=== PATIENT | female | born 1965 | race Caucasian/White ===

== ENCOUNTER 2022-03-12 09:20 | Outpatient (CLI) | payer BC, SELFPAY ==
[2022-03-13 09:45] LABS: Follicle Stimulating Hormone 29.8 IU/L
== END 2022-03-12 09:21 | disposition home or self-care (01) ==
PROVIDERS: PCP Family Medicine; Visit Provider Obstetrics & Gynecology
DX: N95.1 Menopausal and female climacteric states (principal)
CPT/HCPCS: 83001

== ENCOUNTER 2022-08-04 13:24 | Emergency (ER) | payer BC, SELFPAY ==
[2022-08-04 13:30] VITALS: BP 159/93; PULSE 85; RESP 17; O2SAT 100; BMI 28.9
[2022-08-04 13:36] VITALS: TEMP 36.7; BMI 28.9
--- NOTE | 2022-08-04 13:45 | CRLHL7_ITS ---
For Patients: As a result of the Century Cures Act, medical imaging exams and procedure reports are released immediately into your electronic medical record. You may view this report before your referring provider. If you have questions, please contact your health care provider. INDICATION: Lower abdominal pain. TECHNIQUE: CT of the abdomen and pelvis without intravenous contrast. Coronal and sagittal reconstructions. COMPARISON: None. FINDINGS: Tiny calcified granuloma in the left hepatic lobe. The unenhanced liver is otherwise unremarkable. Cholecystectomy. Mild dilation of the common bile duct likely related to post cholecystectomy state. The unenhanced spleen, pancreas, and adrenal glands are normal in appearance. No hydronephrosis or ureteral dilation. No obstructing urinary calculi identified. Subcentimeter low-attenuation lesion in the anterior lower pole right kidney is too small to characterize. There is a 3.8 cm cyst in the posterior left kidney which contains a calcified septation. The bladder is normal in appearance. Bulky fibroid uterus. Exophytic left fundal fibroid versus enlarged left ovary (series 2, image 90). Extensive colonic diverticulosis. There is wall thickening of the proximal sigmoid colon with prominent surrounding inflammatory fat stranding. Findings are compatible with acute diverticulitis. Small amount of free fluid in the posterior pelvis. No intraperitoneal free air or evidence of abscess. Negative appendix. No small bowel dilation. No lymphadenopathy by size criteria. Small fat containing umbilical hernia. Mild degenerative changes of the spine. The lung bases are clear. IMPRESSION: 1. Acute uncomplicated diverticulitis of the proximal sigmoid colon. No evidence of perforation or abscess. Small amount of free fluid. 2. Complex septated left renal cyst. Recommend further evaluation with nonemergent renal ultrasound. 3. Bulky fibroid uterus. Exophytic left fundal fibroid versus enlarged left ovary. This could be further evaluated with pelvic ultrasound. Please note that all CT scans at this facility use dose modulation, iterative reconstruction, and/or weight-based dosing when appropriate to reduce radiation dose to as low as reasonably achievable. Dictated by Jaqueline Suarez MD @ 08/04/2022 2:47:48 PM (Electronically Signed)
--- NOTE | 2022-08-04 13:46 | ED_ITS ---
HPI - General Adult General Chief complaint: Abdominal Pain Stated complaint: Abdominal Pain Time Seen by Provider: 08/04/22 13:30 History of Present Illness HPI narrative: Patient is a 56-year-old female has had history of diverticulitis. She reports that she has had abdominal pain for last 3 or 4 days started and she feels a burning feeling in her lower abdomen. She says this is similar to diverticulitis she had the past but it is more diffuse. Radiates a little bit to her back. Patient denies chest pain shortness of breath, rigors she has had nausea. Denies dysuria, hematuria, diarrhea, no blood in her stool. Presents to ED for evaluation. Typically she has not responded well to antibiotics for diverticulitis but has responded to steroids and fasting. Related Data Home Medications Medication Instructions Recorded Confirmed Lactobacillus acidophilus 100 mg 100 mg PO QDAY 02/16/22 03/23/22 (1 billion cell) capsule cholecalciferol (vitamin D3) 25 50 mcg PO DAILY 02/16/22 03/23/22 mcg (1,000 unit) tablet multivitamin 1 tab PO QAM 02/16/22 03/23/22 Previous Rx's Medication Instructions Recorded levonorgestrel-ethinyl estradiol 1 tab PO QDAY #28 tabs 02/16/22 0.1 mg-20 mcg tablet (Falmina (28)) clindamycin HCl 150 mg capsule 150 mg PO TID #15 caps 08/04/22 hydrocodone 7.5 mg-acetaminophen 1 tab PO Q8H PRN pain #14 tabs 08/04/22 325 mg tablet sulfamethoxazole 800 1 tab PO DAILY 10 days #20 tabs 08/04/22 mg-trimethoprim 160 mg tablet Allergies Allergy/AdvReac Type Severity Reaction Status Date / Time penicillin V Allergy Severe Hives Verified 08/04/22 13:40 progesterone Allergy Severe swelling, Verified 08/04/22 13:40 burning of skin, itching, rash ciprofloxacin Allergy Intermediate Hives Verified 08/04/22 13:40 metronidazole Allergy Intermediate Rash Verified 08/04/22 13:40 Nitroimidazoles Allergy Unknown Verified 08/04/22 13:40 DIATRIZOATE MEGLUMINE (IV Allergy Unknown Hives Uncoded 03/23/22 08:51 CONTRAST Review of Systems Status of ROS: Reports: 6 or more systems reviewed and unremarkable except as noted in History and below PFSH PFSH Medical History Abnormal uterine bleeding Angioedema Atrial fibrillation Diverticulitis Lung mass Perimenopause Rectocele Surgical History History of lung biopsy S/P cholecystectomy S/P dilation and curettage Stone in kidney Family History Aunt Diabetes Other Colon cancer Ovarian cancer Social History Narrative: 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 HEENT unremarkable no scleral icterus mouth clear Neck is supple Chest is clear Lung are heart rhythm regular without murmur Abdomen is bowel sounds normoactive, diffuse lower abdominal pain and mild guarding, no obvious rebound. The patient has no upper abdominal tenderness Neurologic nonfocal Skin is warm and dry, no leg swelling Const: Vital Signs, click to edit/add: Vital Signs - 24 hr 08/04/22 13:30 08/04/22 13:36 08/04/22 14:14 Temperature 98.1 F Pulse Rate [Pulse Oximeter] 85 Respiratory Rate 17 Blood Pressure [Ri ght Upper Arm] 159/93 H 144/82 H Pulse Oximetry 100 Oxygen Delivery Me thod Room Air Course Vital Signs Vital signs: Initial Vital Signs Temperature Source Temporal Artery Scan 08/04/22 13:30 Pulse Rate 85 08/04/22 13:30 Pulse Rhythm 08/04/22 13:30 Pulse Strength 3+ Normal 08/04/22 13:30 Respiratory Rate 17 08/04/22 13:30 Blood Pressure 159/93 H 08/04/22 13:30 Blood Pressure Mean 115 08/04/22 13:30 Blood Pressure Position Supine 08/04/22 13:30 Pulse Oximetry 100 08/04/22 13:30 Oxygen Delivery Method 08/04/22 13:30 Vital Signs Pulse Rate 85 08/04/22 13:30 Respiratory Rate 17 08/04/22 13:30 Blood Pressure 159/93 H 08/04/22 13:30 Pulse Oximetry 100 08/04/22 13:30 Oxygen Delivery Method 08/04/22 13:30 Temperature 98.1 F 08/04/22 13:36 Pulse Rate 85 08/04/22 13:30 Respiratory Rate 17 08/04/22 13:30 Blood Pressure 144/82 H 08/04/22 14:14 Pulse Oximetry 100 08/04/22 13:30 Oxygen Delivery Method 08/04/22 13:30 Medical Decision Making MDM Narrative Medical decision making narrative: [age] year white female with a history of diverticulitis with 3 day history of abdominal discomfort lower abdomen, with some mild guarding and tenderness. Some nausea and question fever as well, although none now. The patient will get CT scan her abdomen thought contrast as she is allergic to the contrast, lab studies, IV fluid, IV morphine. Disposition pending findings. Suspicion would be for diverticulitis again versus obstruction, other into intra-abdominal pathology. Addendum: The patient's CT scan of the abdomen shows acute uncomplicated diverticulitis of the proximal sigmoid colon no perforation or abscess small amount of free fluid complex septated left renal cyst needs further evaluation as an outpatient Bulky fibroid uterus questionable left fundal fibroid versus and slightly enlarged left ovary needs pelvic ultrasound as an outpatient. Discussed this with the patient she should get a renal and pelvic ultrasound to follow-up these findings. She can schedule this through her regular physician. Today she has sigmoid diverticulitis. She has multiple allergies to medications, but would like to treat this at home if possible. Will give her Ellis as needed and would start Septra DS 1 p.o. b.i.d. times 10 days. Due to her multiple allergies other medications will be added to this, but I think that might be adequate for her at this point, especially since she has uncomplicated diverticulitis in that is occasionally being treated without antibiotics. The patient has had recurrence of symptoms and has had diverticulitis in the past so I think treating her with antibiotic would be appropriate Lab Data Labs: Lab Results 08/04/22 08/04/22 08/04/22 Range/Units 14:00 14:00 14:00 WBC 19.08 H (4.50-11.00) K/uL RBC 4.52 (4.00-5.20) m/uL Hgb 13.7 (12.0-16.0) gm/dL Hct 41.2 (33.0-51.0) % MCV 91 (80-100) fL MCH 30 (26-34) pg MCHC 33 (32-36) gm/dL RDW Coeff of Afshan 13.2 (11.5-15.5) % Plt Count 297 (140-440) K/uL Neut % (Auto) 84.3 H (42.0-72.0) % Lymph % (Auto) 6.7 L (20-44) % Vigo % (Auto) 7.9 (0.0-11.0) % Eos % (Auto) 0.1 (0.0-7.0) % Baso % (Auto) 0.1 (0.0-3.0) % Neut # (Auto) 16.10 H (1.7-7.0) K/uL Lymph # (Auto) 1.30 (0.90-2.90) K/uL Vigo # (Auto) 1.50 H (0.00-0.90) K/UL Eos # (Auto) 0.00 (0.00-0.50) K/uL Baso # (Auto) 0.00 (0.00-0.30) K/uL Sodium 138 (135-149) mmol/L Potassium 3.8 (3.6-5.1) mmol/L Chloride 106 (96-114) mmol/L Carbon Dioxide 24 (20-32) mmol/L BUN 10 (7-30) mg/dL Creatinine 0.5 (0.5-1.5) mg/dL Estimated Creat Clear 126.74 Estimated GFR 110 ml/min Glucose 79 (60-115) mg/dL Lactate 0.9 (0.5-1.9) mmol/L Calcium 8.8 (8.4-10.6) mg/dL Total Bilirubin 1.1 (0.1-1.5) mg/dL Direct Bilirubin 0.0 (0.0-0.5) mg/dL AST 26 (12-35) U/L ALT 26 (4-35) U/L Alkaline Phosphatase 69 (40-150) U/L C-Reactive Protein 7.7 H (0.5-1.0) mg/dL Total Protein 7.3 (6.0-8.3) g/dL Albumin 4.3 (3.3-5.0) g/dL Amylase 80 (18-89) U/L Urine Color (Yellow) Urine Appearance (Clear) Urine pH (5.0-8.5) Ur Specific Lin[place] (1.000-1.030) Urine Protein (Negative) Urine Glucose (UA) (Negative) Urine Ketones (Negative) Urine Blood (Negative) Urine Nitrite (Negative) Urine Bilirubin (Negative) Urine Urobilinogen (0.2-1.0) Ur Leukocyte Esterase (Negative) Urine RBC (0-2) Urine WBC (0-5) Ur Squamous Epith Cells (None-Few) Urine Bacteria (None) 08/04/22 Range/Units 14:45 WBC (4.50-11.00) K/uL RBC (4.00-5.20) m/uL Hgb (12.0-16.0) gm/dL Hct (33.0-51.0) % MCV (80-100) fL MCH (26-34) pg MCHC (32-36) gm/dL RDW Coeff of Afshan (11.5-15.5) % Plt Count (140-440) K/uL Neut % (Auto) (42.0-72.0) % Lymph % (Auto) (20-44) % Vigo % (Auto) (0.0-11.0) % Eos % (Auto) (0.0-7.0) % Baso % (Auto) (0.0-3.0) % Neut # (Auto) (1.7-7.0) K/uL Lymph # (Auto) (0.90-2.90) K/uL Vigo # (Auto) (0.00-0.90) K/UL Eos # (Auto) (0.00-0.50) K/uL Baso # (Auto) (0.00-0.30) K/uL Sodium (135-149) mmol/L Potassium (3.6-5.1) mmol/L Chloride (96-114) mmol/L Carbon Dioxide (20-32) mmol/L BUN (7-30) mg/dL Creatinine (0.5-1.5) mg/dL Estimated Creat Clear Estimated GFR ml/min Glucose (60-115) mg/dL Lactate (0.5-1.9) mmol/L Calcium (8.4-10.6) mg/dL Total Bilirubin (0.1-1.5) mg/dL Direct Bilirubin (0.0-0.5) mg/dL AST (12-35) U/L ALT (4-35) U/L Alkaline Phosphatase (40-150) U/L C-Reactive Protein (0.5-1.0) mg/dL Total Protein (6.0-8.3) g/dL Albumin (3.3-5.0) g/dL Amylase (18-89) U/L Urine Color Dark yellow (Yellow) Urine Appearance Clear (Clear) Urine pH 6.0 (5.0-8.5) Ur Specific [place] >= 1.030 (1.000-1.030) Urine Protein Trace A (Negative) Urine Glucose (UA) Negative (Negative) Urine Ketones 4+ A (Negative) Urine Blood 2+ A (Negative) Urine Nitrite Negative (Negative) Urine Bilirubin 1+ A (Negative) Urine Urobilinogen 0.2 (0.2-1.0) Ur Leukocyte Esterase Negative (Negative) Urine RBC 0-2 (0-2) Urine WBC 0-2 (0-5) Ur Squamous Epith Cells None (None-Few) Urine Bacteria None (None) Discharge Plan Discharge Clinical Impression: Abdominal pain, Diverticulitis Patient Disposition: Home w/ Parent or Adult Condition: Improved Instructions: Diverticulitis (ED), Abdominal Pain (ED) Additional Instructions: Septra, clindamycin, and Ellis as prescribed, light activity, light diet fluids today, advance diet as tolerated. If worsening pain or other concern return to ED for IV antibiotics and admission. Also you need to talk to your primary doctor about ordering a kidney ultrasound because of a cyst and a pelvic ultrasound because of uterine fibroids and an enlarged left ovary. You can do this as an outpatient with your regular doctor. If he have difficulty scheduling this then let us know in the ER. Activity Level: Light activity Discharge Diet: Regular Diet Detail: Liquid today, starting tomorrow may advance diet as tolerated Prescriptions: New sulfamethoxazole-trimethoprim 800-160 mg tablet 1 tab PO DAILY 10 Days Qty: 20 0RF hydrocodone-acetaminophen 7.5-325 mg tablet 1 tab PO Q8H PRN (Reason: pain) Qty: 14 0RF clindamycin HCl 150 mg capsule 150 mg PO TID Qty: 15 0RF No Action cholecalciferol (vitamin D3) 25 mcg (1,000 unit) tablet 50 mcg PO DAILY multivitamin Tablet 1 tab PO QAM Lactobacillus acidophilus 100 mg (1 billion cell) capsule 100 mg PO QDAY levonorgestrel-ethinyl estrad [Falmina (28)] 0.1-20 mg-mcg tablet 1 tab PO QDAY Qty: 28 11RF Follow Up/Referrals: Sangita Kimbrough DO [Staff Physician] - Stand Alone Forms: [facility] Info Instructions
[2022-08-04] MEDS: MORPHINE 4 MG/ML INJ IVP (14:03)
[2022-08-04] MEDS: 0.9 % SODIUM CHLORIDE 1000 ml 1,000 ML 6000 ML IV (14:03)
[2022-08-04 14:06] LABS: Lactate* 0.9 mmol/L (0.5-1.9)
[2022-08-04 14:14] VITALS: BP 144/82
[2022-08-04 14:17] LABS: Basophils Percent Auto 0.1 % (0.0-3.0); Eosinophils Percent Auto 0.1 % (0.0-7.0); Hematocrit 41.2 % (33.0-51.0); Hemoglobin* 13.7 gm/dL (12.0-16.0); Immature Granulocytes Pct Auto 0.9 %; Lymphocytes Percent Auto 6.7 % (20-44); Mean Corpuscular HGB Conc 33 gm/dL (32-36); Mean Corpuscular Hemoglobin 30 pg (26-34); Mean Corpuscular Volume 91 fL (80-100); Monocytes Percent Auto 7.9 % (0.0-11.0); Neutrophils Percent Auto 84.3 % (42.0-72.0); Platelet Count* 297 K/uL (140-440); RDW Coefficient of Variation % 13.2 % (11.5-15.5); Red Blood Count 4.52 m/uL (4.00-5.20); White Blood Count* 19.08 K/uL (4.50-11.00)
[2022-08-04 14:20] LABS: Slide Review Reflex No
[2022-08-04 14:33] LABS: Albumin* 4.3 g/dL (3.3-5.0); Chloride* 106 mmol/L (96-114); Sodium* 138 mmol/L (135-149)
[2022-08-04 14:34] LABS: Potassium* 3.8 mmol/L (3.6-5.1)
[2022-08-04 14:35] LABS: Amylase* 80 U/L (18-89); Creatinine* 0.5 mg/dL (0.5-1.5); Est. Creatinine Clearance* 126.74; Estimated Glomerular Filt Rate 110 ml/min
[2022-08-04 14:36] LABS: Alanine Aminotransferase* 26 U/L (4-35); Alkaline Phosphatase* 69 U/L (40-150); Aspartate Amino Transferase* 26 U/L (12-35); Bilirubin Total* 1.1 mg/dL (0.1-1.5); Blood Urea Nitrogen* 10 mg/dL (7-30); Carbon Dioxide* 24 mmol/L (20-32); Glucose* 79 mg/dL (60-115); Total Protein* 7.3 g/dL (6.0-8.3)
[2022-08-04 14:37] LABS: Calcium* 8.8 mg/dL (8.4-10.6)
[2022-08-04 14:39] LABS: C Reactive Protein* 7.7 mg/dL (0.5-1.0)
[2022-08-04 15:05] LABS: Appearance Urine Clear (Clear); Bilirubin Urine 1+ (Negative); Blood Urine 2+ (Negative); Color Urine Dark yellow (Yellow); Glucose Urine Negative (Negative); Ketones Urine 4+ (Negative); Leukocyte Esterase Urine Negative (Negative); Nitrite Urine Negative (Negative); Protein Urine Trace (Negative); Specific Gravity Urine >= 1.030 (1.000-1.030); Urobilinogen Urine 0.2 (0.2-1.0)
[2022-08-04] MEDS: HYDROCODONE/ACETAMIN 7.5-325 TABLET 1 TAB PO (15:09)
[2022-08-04 15:26] LABS: RBC Urine 0-2 (0-2); WBC Urine 0-2 (0-5)
--- NOTE | 2022-08-04 15:27 | ED.NURSE ---
[facility] pharmacy called requesting clarification of sulfa rx. Clarified rx with MD Hardy for BID dosing x10 days and updated [facility] pharmacy.
== END 2022-08-04 15:13 | disposition home or self-care (01) ==
PROVIDERS: Emergency Provider Family Medicine; PCP Physician Assistant Medical
DX: K52.9 Noninfective gastroenteritis and colitis, unspecified (principal)
CPT/HCPCS: 36415; 74176; 80048; 80076; 81001; 82150; 83605; 85025; 86140; 87086; 96374; 99284; A9270; J2270; J7030

== ENCOUNTER 2022-08-06 15:31 | Emergency (ER) | payer BC, SELFPAY ==
[2022-08-06] VITALS (23 sets, daily range): BP systolic 100–113; BP diastolic 61–87; PULSE 60–74; RESP 18; TEMP 36.8; O2SAT 93–100; BMI 28.9
--- NOTE | 2022-08-06 15:47 | ED.CHESTPAIN ---
HPI - Chest Pain General Time Seen by Provider: 15:47 Date Seen: 08/06/22 Chief Complaint: Chest Pain Stated Complaint: Chest Pain Fatigue Jaw Pain Time Seen by Provider: 08/06/22 15:47 Source: patient Mode of arrival: ambulatory Limitations: no limitations History of Present Illness HPI narrative: Fiona is a very pleasant 56-year-old female with a history of esophageal diverticulum, vaginal hemorrhage secondary to Eliquis, as well as recent treatment for diverticulitis who comes to the emergency room with chest pain. Patient notes that she had the onset of chest pain last night. She frequently has chest pain in association with a diverticulum in her esophagus that sometimes has food caught in it. She notes however that she has been on a liquid diet only over the past 5 days. Unusual as well was at the pain radiated into her left shoulder and shoulder blade. It was not associated with any shortness of breath but she does describe extreme fatigue. She has not had any coughing or a fever. In regards to her abdominal discomfort her lower abdominal pain is not gone but is markedly improved. She has persisting left upper quadrant abdominal pain and now has increased bloating across the upper abdomen. Patient noted that she initially had the onset of diverticulitis symptoms on TuesdayAugust 02. She has this frequently and will usually just go on a liquid diet and it would resolve. She states that antibiotics have not helped her in the past. However she started having increasing discomfort and was seen in the emergency room on TuesdayAugust 04. At that time she was placed on antibiotics as well as pain medications. She took her last pain medication yesterday morning at 0400 hours. Patient states that her pain was enough last night that she had a hard time sleeping. In regards to her past heart history she has had 2 episodes of atrial fibrillation. She was initially placed on a blood thinner in preparation for cardioversion but her AFib resolved prior to that. She then had a 2nd episode of atrial fibrillation and did have to have a cardioversion which was successful. She is no longer on Eliquis as she had a vaginal hemorrhage. Related Data Home Medications Medication Instructions Recorded Confirmed Lactobacillus acidophilus 100 mg 100 mg PO QDAY 02/16/22 03/23/22 (1 billion cell) capsule cholecalciferol (vitamin D3) 25 50 mcg PO DAILY 02/16/22 03/23/22 mcg (1,000 unit) tablet multivitamin 1 tab PO QAM 02/16/22 03/23/22 Previous Rx's Medication Instructions Recorded levonorgestrel-ethinyl estradiol 1 tab PO QDAY #28 tabs 02/16/22 0.1 mg-20 mcg tablet (Falmina (28)) clindamycin HCl 150 mg capsule 150 mg PO TID #15 caps 08/04/22 hydrocodone 7.5 mg-acetaminophen 1 tab PO Q8H PRN pain #14 tabs 08/04/22 325 mg tablet sulfamethoxazole 800 1 tab PO DAILY 10 days #20 tabs 08/04/22 mg-trimethoprim 160 mg tablet cefdinir 300 mg capsule 300 mg PO BID 7 days #14 caps 08/06/22 clindamycin HCl 150 mg capsule 450 mg PO TID #20 caps 08/06/22 Allergies Allergy/AdvReac Type Severity Reaction Status Date / Time penicillin V Allergy Severe Hives Verified 08/06/22 15:38 progesterone Allergy Severe swelling, Verified 08/06/22 15:38 burning of skin, itching, rash ciprofloxacin Allergy Intermediate Hives Verified 08/06/22 15:38 metronidazole Allergy Intermediate Rash Verified 08/06/22 15:38 Nitroimidazoles Allergy Unknown Verified 08/06/22 15:38 Iodinated Contrast Media Allergy Verified 08/06/22 17:43 Review of Systems Status of ROS Reports: 10 or more systems reviewed and unremarkable except as noted in History and below Narrative Denies tobacco or drug use. Alcohol use is occasional. Const Reports: fatigue; Denies: fever or chills ENMT Denies: throat pain, neck pain or throat swelling Cardio Reports: chest pain; Denies: palpitations, edema, swelling of feet/ankles or shortness of breath with exertion Resp Denies: shortness of breath, cough or wheezing GI Reports: abdominal pain; Denies: nausea, vomiting or diarrhea Denies: painful urination or urinary frequency Musculo Denies: neck pain Integ/Breast Denies: rash Endo Reports: fatigue Allergy/Immuno Denies: throat swelling or wheezing PFSH PFSH Medical History Abnormal uterine bleeding Angioedema Atrial fibrillation Diverticulitis Lung mass Perimenopause Rectocele Surgical History History of lung biopsy S/P cholecystectomy S/P dilation and curettage Stone in kidney Family History Aunt Diabetes Other Colon cancer Ovarian cancer Social History Narrative: Mental health professional: 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 [employer] She has a master's degree She exercises regularly She does not smoke She drinks alcohol 3 to 4 times a week She does not use recreational drugs Smoking Status: Never smoker Do you use any of these nicotine containing products: None Second hand tobacco smoke exposure: No How often do you have a drink containing alcohol: monthly or less How many standard drinks containing alcohol do you have on a typical day: 1 or 2 How often do you have six or more drinks on one occasion: Never AUDIT-C Alcohol total score: 1 Non-prescribed substance use: denies use Little interest or pleasure in doing things: not at all Feeling down, depressed, or hopeless: not at all service: No Exam Narrative Exam Narrative: Patient is alert and oriented. She does appear fatigued and is resting in exam room 8. Her daughter accompanies her and is very supportive and loving. Eyes are clear. Neck is supple. Heart with regular rate and rhythm. Lungs are clear in all lung garcia. Abdomen shows tenderness in the left upper quadrant as well as left lower quadrant. No rebound tenderness. Lower extremities without edema or calf tenderness. Const Vital Signs, click to edit/add: Vital Signs - 24 hr 08/06/22 15:38 08/06/22 17:47 08/06/22 16:15 Temperature 98.3 F Pulse Rate 74 Pulse Rate [Pulse Oximeter] 74 Respiratory Rate 18 Blood Pressure Blood Pressure [Left Upper Arm] 111/87 Pulse Oximetry 99 97 93 Oxygen Delivery Method Room Air 08/06/22 16:30 08/06/22 16:31 08/06/22 17:00 Temperature Pulse Rate 70 68 69 Pulse Rate [Pulse Oximeter] Respiratory Rate Blood Pressure 105/73 Blood Pressure [Left Upper Arm] Pulse Oximetry 97 98 97 Oxygen Delivery Method 08/06/22 17:01 08/06/22 17:30 08/06/22 17:31 Temperature Pulse Rate 69 65 61 Pulse Rate [Pulse Oximeter] Respiratory Rate Blood Pressure 110/71 101/64 Blood Pressure [Left Upper Arm] Pulse Oximetry 100 96 95 Oxygen Delivery Method 08/06/22 17:32 08/06/22 18:00 08/06/22 18:01 Temperature Pulse Rate 60 64 64 Pulse Rate [Pulse Oximeter] Respiratory Rate Blood Pressure 111/65 Blood Pressure [Left Upper Arm] Pulse Oximetry 97 98 99 Oxygen Delivery Method 08/06/22 18:30 08/06/22 18:32 08/06/22 19:00 Temperature Pulse Rate 66 69 65 Pulse Rate [Pulse Oximeter] Respiratory Rate Blood Pressure 113/68 Blood Pressure [Left Upper Arm] Pulse Oximetry 98 98 94 Oxygen Delivery Method 08/06/22 19:01 Temperature Pulse Rate 64 Pulse Rate [Pulse Oximeter] Respiratory Rate Blood Pressure 107/66 Blood Pressure [Left Upper Arm] Pulse Oximetry 95 Oxygen Delivery Method Documenting provider has reviewed patient's vital signs: yes Course Course Hospital Course: Differential diagnosis includes but is not limited to acute coronary event, esophagitis, referred diaphragmatic pressure, perforation of diverticulitis, other infectious source. We will place an IV and draw labs to include CBC, comprehensive panel, CRP, troponin, amylase, lipase. Will also obtain urinalysis and chest x-ray. Patient voices understanding of her plan going forward. Will also add COVID swab. Reevaluation(s) Reevaluation #1: Patient receptive to using some pain medication and 4 mg of Zofran and morphine given. Patient notes improvement. Reevaluation #2: Patient doing well. Discussed with patient fluid in the esophagus but otherwise no other worrisome signs. Persisting abnormality of both kidney and questionable ovary. Vital Signs Vital signs: Initial Vital Signs Temperature 98.3 F 08/06/22 15:38 Temperature Source Temporal Artery Scan 08/06/22 15:38 Pulse Rate 74 08/06/22 15:38 Pulse Rhythm 08/06/22 15:38 Respiratory Rate 18 08/06/22 15:38 Blood Pressure 111/87 08/06/22 15:38 Blood Pressure Mean 95 08/06/22 15:38 Blood Pressure Position Supine 08/06/22 15:38 Pulse Oximetry 99 08/06/22 15:38 Oxygen Delivery Method 08/06/22 15:38 Vital Signs Temperature 98.3 F 08/06/22 15:38 Pulse Rate 74 08/06/22 15:38 Respiratory Rate 18 08/06/22 15:38 Blood Pressure 111/87 08/06/22 15:38 Pulse Oximetry 99 08/06/22 15:38 Oxygen Delivery Method 08/06/22 15:38 Temperature 98.3 F 08/06/22 15:38 Pulse Rate 64 08/06/22 19:01 Respiratory Rate 18 08/06/22 15:38 Blood Pressure 107/66 08/06/22 19:01 Pulse Oximetry 95 08/06/22 19:01 Oxygen Delivery Method 08/06/22 15:38 MDM - Chest Pain MDM Narrative Medical decision making narrative: 1. Chest pain-patient has negative troponin x2 as well as reassuring EKGs. I believe that her discomfort is actually referred pain from the esophagus which may be irritated as there is fluid in the esophagus. I am wondering if the use of Bactrim has also cause some irritation. Will treat with omeprazole 40 mg p.o. at this time. No evidence of hypoxia or underlying pneumonia or acute coronary syndrome. 2. Diverticulitis-persistent but no evidence of abscess or perforation. Patient has seen improvement in her white count from 19.08 to normal today at 4.59. Her CRP is still elevated at 7.9 with previous value of 7.7. I do wonder if we need to broaden antibiotic coverage. She is feeling bloated today which is consistent with effects of pain and infection. I spoke with patient about continuing Bactrim versus switching to broader spectrum. I do wonder of Bactrim is part of her discomfort today. She has elected to switch and we will be using clindamycin 450 mg t.i.d. 1st dose given tonight and Omnicef 300 mg p.o. b.i.d.. Unfortunately we do not have Omnicef in house and therefore will give 1 g of Rocephin. She feels comfortable with this plan. Initially she stated that sometimes antibiotics do not work but clearly we have seen improvement in her white count. 3. Disposition-home with her daughter. Return to the emergency room for worsening symptoms. Will print out copy of her CT as she will need outpatient follow-up for unusual appearance of the left ovary and a left renal cyst. This can be done as an outpatient with her primary MD. Medical Records Data Attestation: I reviewed the patient's medical records. Lab Data Attestation: I reviewed the patient's lab results. Labs: Lab Results 08/06/22 08/06/22 08/06/22 Range/Units 16:05 16:32 16:32 WBC 4.59 (4.50-11.00) K/uL RBC 4.42 (4.00-5.20) m/uL Hgb 13.1 (12.0-16.0) gm/dL Hct 40.9 (33.0-51.0) % MCV 93 (80-100) fL MCH 30 (26-34) pg MCHC 32 (32-36) gm/dL RDW Coeff of Afshan 12.9 (11.5-15.5) % Plt Count 285 (140-440) K/uL Neut % (Auto) 67.5 (42.0-72.0) % Lymph % (Auto) 12.4 L (20-44) % [place]osa % (Auto) 15.7 H (0.0-11.0) % Eos % (Auto) 2.8 (0.0-7.0) % Baso % (Auto) 0.7 (0.0-3.0) % Neut # (Auto) 3.10 (1.7-7.0) K/uL Lymph # (Auto) 0.60 L (0.90-2.90) K/uL [place] # (Auto) 0.70 (0.00-0.90) K/UL Eos # (Auto) 0.13 (0.00-0.50) K/uL Baso # (Auto) 0.03 (0.00-0.30) K/uL Sodium 136 (135-149) mmol/L Potassium 4.2 (3.6-5.1) mmol/L Chloride 103 (96-114) mmol/L Carbon Dioxide 26 (20-32) mmol/L BUN 6 L (7-30) mg/dL Creatinine 0.7 (0.5-1.5) mg/dL Estimated Creat Clear 90.53 Estimated GFR 101 ml/min Glucose 96 (60-115) mg/dL Calcium 8.9 (8.4-10.6) mg/dL Total Bilirubin 0.6 (0.1-1.5) mg/dL AST 27 (12-35) U/L ALT 24 (4-35) U/L Alkaline Phosphatase 67 (40-150) U/L C-Reactive Protein 7.9 H (0.5-1.0) mg/dL Total Protein 7.6 (6.0-8.3) g/dL Albumin 4.2 (3.3-5.0) g/dL Amylase (18-89) U/L Lipase (23-300) U/L Urine Color Yellow (Yellow) Urine Appearance Clear (Clear) Urine pH 6.5 (5.0-8.5) Ur Specific Clare 1.010 (1.000-1.030) Urine Protein Negative (Negative) Urine Glucose (UA) Negative (Negative) Urine Ketones Trace A (Negative) Urine Blood 1+ A (Negative) Urine Nitrite Negative (Negative) Urine Bilirubin Negative (Negative) Urine Urobilinogen 1.0 (0.2-1.0) Ur Leukocyte Esterase Negative (Negative) Urine RBC 0-2 (0-2) Urine WBC 0-2 (0-5) Ur Squamous Epith Cells Few (None-Few) Urine Bacteria None (None) SARS-CoV-2 (PCR) (Negative) Influenza Type A (PCR) (Negative) Influenza Type B (PCR) (Negative) RSV (PCR) (Negative) POC Troponin I (0.01-0.04) ng/ml 08/06/22 08/06/22 08/06/22 Range/Units 16:32 16:32 16:48 WBC (4.50-11.00) K/uL RBC (4.00-5.20) m/uL Hgb (12.0-16.0) gm/dL Hct (33.0-51.0) % MCV (80-100) fL MCH (26-34) pg MCHC (32-36) gm/dL RDW Coeff of Afshan (11.5-15.5) % Plt Count (140-440) K/uL Neut % (Auto) (42.0-72.0) % Lymph % (Auto) (20-44) % [place] % (Auto) (0.0-11.0) % Eos % (Auto) (0.0-7.0) % Baso % (Auto) (0.0-3.0) % Neut # (Auto) (1.7-7.0) K/uL Lymph # (Auto) (0.90-2.90) K/uL [place] # (Auto) (0.00-0.90) K/UL Eos # (Auto) (0.00-0.50) K/uL Baso # (Auto) (0.00-0.30) K/uL Sodium (135-149) mmol/L Potassium (3.6-5.1) mmol/L Chloride (96-114) mmol/L Carbon Dioxide (20-32) mmol/L BUN (7-30) mg/dL Creatinine (0.5-1.5) mg/dL Estimated Creat Clear Estimated GFR ml/min Glucose (60-115) mg/dL Calcium (8.4-10.6) mg/dL Total Bilirubin (0.1-1.5) mg/dL AST (12-35) U/L ALT (4-35) U/L Alkaline Phosphatase (40-150) U/L C-Reactive Protein (0.5-1.0) mg/dL Total Protein (6.0-8.3) g/dL Albumin (3.3-5.0) g/dL Amylase 89 (18-89) U/L Lipase 55 (23-300) U/L Urine Color (Yellow) Urine Appearance (Clear) Urine pH (5.0-8.5) Ur Specific Clare (1.000-1.030) Urine Protein (Negative) Urine Glucose (UA) (Negative) Urine Ketones (Negative) Urine Blood (Negative) Urine Nitrite (Negative) Urine Bilirubin (Negative) Urine Urobilinogen (0.2-1.0) Ur Leukocyte Esterase (Negative) Urine RBC (0-2) Urine WBC (0-5) Ur Squamous Epith Cells (None-Few) Urine Bacteria (None) SARS-CoV-2 (PCR) Negative SARS-CoV-2 (Negative) Influenza Type A (PCR) Negative PCR FLU A (Negative) Influenza Type B (PCR) Negative PCR FLU B (Negative) RSV (PCR) Negative PCR RSV (Negative) POC Troponin I 0.00 L (0.01-0.04) ng/ml 08/06/22 Range/Units 18:34 WBC (4.50-11.00) K/uL RBC (4.00-5.20) m/uL Hgb (12.0-16.0) gm/dL Hct (33.0-51.0) % MCV (80-100) fL MCH (26-34) pg MCHC (32-36) gm/dL RDW Coeff of Afshan (11.5-15.5) % Plt Count (140-440) K/uL Neut % (Auto) (42.0-72.0) % Lymph % (Auto) (20-44) % [place] % (Auto) (0.0-11.0) % Eos % (Auto) (0.0-7.0) % Baso % (Auto) (0.0-3.0) % Neut # (Auto) (1.7-7.0) K/uL Lymph # (Auto) (0.90-2.90) K/uL [place] # (Auto) (0.00-0.90) K/UL Eos # (Auto) (0.00-0.50) K/uL Baso # (Auto) (0.00-0.30) K/uL Sodium (135-149) mmol/L Potassium (3.6-5.1) mmol/L Chloride (96-114) mmol/L Carbon Dioxide (20-32) mmol/L BUN (7-30) mg/dL Creatinine (0.5-1.5) mg/dL Estimated Creat Clear Estimated GFR ml/min Glucose (60-115) mg/dL Calcium (8.4-10.6) mg/dL Total Bilirubin (0.1-1.5) mg/dL AST (12-35) U/L ALT (4-35) U/L Alkaline Phosphatase (40-150) U/L C-Reactive Protein (0.5-1.0) mg/dL Total Protein (6.0-8.3) g/dL Albumin (3.3-5.0) g/dL Amylase (18-89) U/L Lipase (23-300) U/L Urine Color (Yellow) Urine Appearance (Clear) Urine pH (5.0-8.5) Ur Specific Clare (1.000-1.030) Urine Protein (Negative) Urine Glucose (UA) (Negative) Urine Ketones (Negative) Urine Blood (Negative) Urine Nitrite (Negative) Urine Bilirubin (Negative) Urine Urobilinogen (0.2-1.0) Ur Leukocyte Esterase (Negative) Urine RBC (0-2) Urine WBC (0-5) Ur Squamous Epith Cells (None-Few) Urine Bacteria (None) SARS-CoV-2 (PCR) (Negative) Influenza Type A (PCR) (Negative) Influenza Type B (PCR) (Negative) RSV (PCR) (Negative) POC Troponin I 0.00 L (0.01-0.04) ng/ml Imaging Data Chest x-ray: Attestation: I have reviewed the pertinent imaging results. My impression: No acute findings Radiologist's impression: Cardiovascular and mediastinum:? Heart size and vasculature are normal in caliber and appearance.? Lungs and pleural spaces:? Lungs are clear.? No sign of infiltrate or mass. ?No sign of pleural effusion.? No pneumothorax.? Bones and soft tissues:? No significant findings. IMPRESSION: No acute findings and no significant changes from the prior exam. CT Chest/Ab/Pelvis: Attestation: I have reviewed the pertinent imaging results. Radiologist's impression: Cardiovascular structures: Thoracic aorta is normal in caliber with mild atherosclerotic calcification. No pericardial effusion. Mediastinum and nirav: Hypodense right lobe thyroid lesion with calcification, similar to the prior exam. Calcified mediastinal and left hilar lymph nodes. Fluid seen within the esophagus. Lungs and pleura: No pleural effusion or pneumothorax. Calcified granuloma left upper lobe. No acute pulmonary consolidation. Chest wall and axilla: No mass or adenopathy.? Bones: No suspicious bone lesions.? Unremarkable for age.? ABDOMEN AND PELVIS: Liver: Calcification within the liver consistent with old granulomatous disease. Gallbladder and bile ducts: Status post cholecystectomy. Pancreas: Unremarkable.? Spleen: Unremarkable.? Adrenal glands: Unremarkable.? Kidneys: Nonobstructing nephrolithiasis. Exophytic cyst posterior left kidney measuring 2.6 centimeters with rim calcification similar to the prior exam. GI tract: Stomach is unremarkable. No dilated loops of large or small intestine with extensive colonic diverticulosis. Prominent inflammation adjacent to a proximal sigmoid diverticulum with some adjacent colonic wall thickening. No definite abscess or pneumoperitoneum. Vascular structures: Unremarkable.? Miscellaneous: Fat containing umbilical hernia. Pelvic Organs: Lobulated uterus, suspect underlying leiomyomata. External iliac lymph nodes measure up to 9 millimeters in short axis. Bones: Degenerative disc disease lumbar spine. IMPRESSION: 1. Acute sigmoid diverticulitis with prominent adjacent inflammation without evidence of abscess or pneumoperitoneum. Appearance is fairly similar to the study of 2 days prior. 2. Complex left renal cyst measuring 2.6 centimeters. Follow-up outpatient ultrasound suggested. 3. Prominent lobulated uterus, likely multiple leiomyomata although correlation with pelvic ultrasound is suggested. 4. Fluid seen within the esophagus. Differential diagnosis includes esophageal dysmotility and gastroesophageal reflux. 5. Old granulomatous disease. ECG Data Attestation: I personally reviewed and interpreted this ECG as follows: ECG interpretation date: 08/06/22 Interpretation: EKG 1. By my read shows sinus rhythm at a rate of 84. ME interval [id number] heart block. Do not note any acute ST or T-wave changes. EKG 2. By my read shows sinus rhythm at a rate of 69. No acute ST or T-wave changes are noted. Normal QT. Discharge Plan Discharge Clinical Impression: Diverticulitis, Atypical chest pain, Acid reflux Patient Disposition: Home, Self-Care Condition: Improved Instructions: Diverticulitis (ED) Additional Instructions: Discontinue Bactrim. You antibiotics will be clindamycin 450 mg 3 times daily. Omnicef 300 mg twice daily. Push fluids as much as possible. Would also recommend the use of omeprazole 20 mg every night for as long as you are on antibiotics. Return to the emergency room for worsening symptoms. A copy of your CT is provided to you. You will need to follow up as an outpatient for incidental findings which looks like were discussed from a previous visit. I just wanted to remind you again. Prescriptions: New clindamycin HCl 150 mg capsule 450 mg PO TID Qty: 20 0RF cefdinir 300 mg capsule 300 mg PO BID 7 Days Qty: 14 0RF No Action cholecalciferol (vitamin D3) 25 mcg (1,000 unit) tablet 50 mcg PO DAILY multivitamin Tablet 1 tab PO QAM Lactobacillus acidophilus 100 mg (1 billion cell) capsule 100 mg PO QDAY levonorgestrel-ethinyl estrad [Falmina (28)] 0.1-20 mg-mcg tablet 1 tab PO QDAY Qty: 28 11RF sulfamethoxazole-trimethoprim 800-160 mg tablet 1 tab PO DAILY 10 Days Qty: 20 0RF hydrocodone-acetaminophen 7.5-325 mg tablet 1 tab PO Q8H PRN (Reason: pain) Qty: 14 0RF clindamycin HCl 150 mg capsule 150 mg PO TID Qty: 15 0RF Follow Up/Referrals: Areli Villagomez PA-C [Primary Care Provider] - Stand Alone Forms: [employer] Info Instructions
--- NOTE | 2022-08-06 16:05 | CRLHL7_ITS ---
For Patients: As a result of the Cures Act, medical imaging exams and procedure reports are released immediately into your electronic medical record. You may view this report before your referring provider. If you have questions, please contact your health care provider. INDICATION: Chest pain. TECHNIQUE: Chest 1 views. COMPARISON: July 26, 2020. FINDINGS: Cardiovascular and mediastinum: Heart size and vasculature are normal in caliber and appearance. Lungs and pleural spaces: Lungs are clear. No sign of infiltrate or mass. No sign of pleural effusion. No pneumothorax. Bones and soft tissues: No significant findings. IMPRESSION: No acute findings and no significant changes from the prior exam. Dictated by Tyson Schroeder MD @ 08/06/2022 5:00:32 PM (Electronically Signed)
[2022-08-06] MEDS: 0.9 % SODIUM CHLORIDE 1000 ml 1,000 ML IV (16:39)
[2022-08-06 16:59] LABS: Basophils Absolute Auto 0.03 K/uL (0.00-0.30); Basophils Percent Auto 0.7 % (0.0-3.0); Eosinophils Absolute Auto 0.13 K/uL (0.00-0.50); Eosinophils Percent Auto 2.8 % (0.0-7.0); Hematocrit 40.9 % (33.0-51.0); Hemoglobin* 13.1 gm/dL (12.0-16.0); Immature Granulocytes Abs Auto 0.04 K/uL (0.00-0.30); Immature Granulocytes Pct Auto 0.9 %; Lymphocytes Percent Auto 12.4 % (20-44); Mean Corpuscular HGB Conc 32 gm/dL (32-36); Mean Corpuscular Hemoglobin 30 pg (26-34); Mean Corpuscular Volume 93 fL (80-100); Monocytes Percent Auto 15.7 % (0.0-11.0); Neutrophils Percent Auto 67.5 % (42.0-72.0); Platelet Count* 285 K/uL (140-440); RDW Coefficient of Variation % 12.9 % (11.5-15.5); Red Blood Count 4.42 m/uL (4.00-5.20); White Blood Count* 4.59 K/uL (4.50-11.00)
[2022-08-06 17:03] LABS: Slide Review Reflex No
[2022-08-06] MEDS: ONDANSETRON 2 MG/ML inj 4 MG IVP (17:07)
[2022-08-06 17:09] LABS: Amylase* 89 U/L (18-89); Lipase* 55 U/L (23-300)
--- NOTE | 2022-08-06 17:10 | CRLHL7_ITS ---
For Patients: As a result of the Century Cures Act, medical imaging exams and procedure reports are released immediately into your electronic medical record. You may view this report before your referring provider. If you have questions, please contact your health care provider. INDICATION: Chest and upper abdominal pain TECHNIQUE: CT chest, abdomen and pelvis acquired with no intravenous contrast. COMPARISON: Chest CT 03/05/2015 and abdomen and pelvis CT 08/04/2022 FINDINGS: CHEST: Cardiovascular structures: Thoracic aorta is normal in caliber with mild atherosclerotic calcification. No pericardial effusion. Mediastinum and nirav: Hypodense right lobe thyroid lesion with calcification, similar to the prior exam. Calcified mediastinal and left hilar lymph nodes. Fluid seen within the esophagus. Lungs and pleura: No pleural effusion or pneumothorax. Calcified granuloma left upper lobe. No acute pulmonary consolidation. Chest wall and axilla: No mass or adenopathy. Bones: No suspicious bone lesions. Unremarkable for age. ABDOMEN AND PELVIS: Liver: Calcification within the liver consistent with old granulomatous disease. Gallbladder and bile ducts: Status post cholecystectomy. Pancreas: Unremarkable. Spleen: Unremarkable. Adrenal glands: Unremarkable. Kidneys: Nonobstructing nephrolithiasis. Exophytic cyst posterior left kidney measuring 2.6 centimeters with rim calcification similar to the prior exam. GI tract: Stomach is unremarkable. No dilated loops of large or small intestine with extensive colonic diverticulosis. Prominent inflammation adjacent to a proximal sigmoid diverticulum with some adjacent colonic wall thickening. No definite abscess or pneumoperitoneum. Vascular structures: Unremarkable. Miscellaneous: Fat containing umbilical hernia. Pelvic Organs: Lobulated uterus, suspect underlying leiomyomata. External iliac lymph nodes measure up to 9 millimeters in short axis. Bones: Degenerative disc disease lumbar spine. IMPRESSION: 1. Acute sigmoid diverticulitis with prominent adjacent inflammation without evidence of abscess or pneumoperitoneum. Appearance is fairly similar to the study of 2 days prior. 2. Complex left renal cyst measuring 2.6 centimeters. Follow-up outpatient ultrasound suggested. 3. Prominent lobulated uterus, likely multiple leiomyomata although correlation with pelvic ultrasound is suggested. 4. Fluid seen within the esophagus. Differential diagnosis includes esophageal dysmotility and gastroesophageal reflux. 5. Old granulomatous disease. Please note that all CT scans at this facility use dose modulation, iterative reconstruction, and/or weight-based dosing when appropriate to reduce radiation dose to as low as reasonably achievable. Dictated by Fausto Green MD @ 08/06/2022 6:17:46 PM (Electronically Signed)
[2022-08-06] MEDS: MORPHINE 4 MG/ML INJ IVP (17:19)
[2022-08-06 17:46] LABS: Albumin* 4.2 g/dL (3.3-5.0); Chloride* 103 mmol/L (96-114); Potassium* 4.2 mmol/L (3.6-5.1); Sodium* 136 mmol/L (135-149)
[2022-08-06 17:48] LABS: Creatinine* 0.7 mg/dL (0.5-1.5); Est. Creatinine Clearance* 90.53; Estimated Glomerular Filt Rate 101 ml/min
[2022-08-06 17:49] LABS: Alanine Aminotransferase* 24 U/L (4-35); Alkaline Phosphatase* 67 U/L (40-150); Aspartate Amino Transferase* 27 U/L (12-35); Bilirubin Total* 0.6 mg/dL (0.1-1.5); Blood Urea Nitrogen* 6 mg/dL (7-30); Carbon Dioxide* 26 mmol/L (20-32); Glucose* 96 mg/dL (60-115); Total Protein* 7.6 g/dL (6.0-8.3)
[2022-08-06 17:50] LABS: Calcium* 8.9 mg/dL (8.4-10.6)
[2022-08-06 17:52] LABS: C Reactive Protein* 7.9 mg/dL (0.5-1.0)
[2022-08-06 17:59] LABS: Appearance Urine Clear (Clear); Bilirubin Urine Negative (Negative); Blood Urine 1+ (Negative); Color Urine Yellow (Yellow); Glucose Urine Negative (Negative); Ketones Urine Trace (Negative); Leukocyte Esterase Urine Negative (Negative); Nitrite Urine Negative (Negative); Protein Urine Negative (Negative); pH Urine 6.5 (5.0-8.5)
[2022-08-06 18:28] LABS: PCR FLU A Negative PCR FLU A (Negative); PCR FLU B Negative PCR FLU B (Negative); PCR RSV Negative PCR RSV (Negative)
[2022-08-06 18:30] LABS: SARS PCR* Negative SARS-CoV-2 (Negative)
[2022-08-06 18:31] LABS: RBC Urine 0-2 (0-2); Squamous Epithelial Cell Urine Few (None-Few); WBC Urine 0-2 (0-5)
[2022-08-06] MEDS: cefTRIAXone 1 GM in 0.9 % SODIUM CHLORIDE Mini-bag 100 ML IVPB (19:56)
[2022-08-06] MEDS: CLINDAMYCIN 150 MG CAPSULE 450 MG PO (19:57)
[2022-08-06] MEDS: OMEPRAZOLE 20 MG CAPSULE DR 40 MG PO (19:57)
== END 2022-08-06 20:48 | disposition home or self-care (01) ==
PROVIDERS: Emergency Provider Family Medicine; PCP Physician Assistant Medical
DX: K57.32 Diverticulitis of large intestine without perforation or abscess without bleeding (principal)
CPT/HCPCS: 36415; 71045; 71250; 74176; 80053; 81001; 82150; 83690; 84484; 85025; 86140; 87502; 87634; 87635; 93005; 94761; 96365; 96375; 99284; 99285; A9270; J0696; J2270; J2405; J7030

== ENCOUNTER 2022-11-22 17:48 | Emergency (ER) | payer BC, SELFPAY ==
[2022-11-22 18:00] VITALS: BP 130/82; PULSE 93; RESP 18; TEMP 36.9; O2SAT 98; BMI 28.9
--- NOTE | 2022-11-22 18:42 | CRLHL7_ITS ---
For Patients: As a result of the Century Cures Act, medical imaging exams and procedure reports are released immediately into your electronic medical record. You may view this report before your referring provider. If you have questions, please contact your health care provider. INDICATION: Recurrent diverticulitis TECHNIQUE: CT abdomen and pelvis without contrast. COMPARISON: August 06, 2022 CT pelvis FINDINGS: Lower chest: Stable hiatal hernia, otherwise, unremarkable. Liver: Unremarkable. Spleen: Unremarkable. Pancreas: Unremarkable. Gallbladder and bile ducts: Cholecystectomy. There is no biliary enlargement. Kidneys: Stable presumed cyst posterior midpole left kidney. Stable nonobstructive punctate calculus mid right kidney. No hydronephrosis. Adrenal glands: Unremarkable. GI tract: New, extensive inflammatory change about the mid transverse colon, in an area of diverticulosis, compatible with acute, uncomplicated diverticulitis. Some of this inflammatory change extends into the umbilicus. Prior diverticulitis about the distal descending and sigmoid colon has resolved. Appendix is normal. Vascular structures: Unremarkable. Lymph nodes: Unremarkable. Miscellaneous: Stable fat containing hernia at the lower right anterior abdominal wall, images 172-173 of series 2. No free air. Pelvic Organs: Mildly enlarged uterus. Small amount of free fluid posterior to the uterus, nonspecific. Otherwise, unremarkable Bones: Unremarkable for age. IMPRESSION: 1. New uncomplicated acute diverticulitis of the transverse colon. 2. Stable additional chronic and postoperative change, as above, including anterior abdominal wall defect right lower abdomen. Please note that all CT scans at this facility use dose modulation, iterative reconstruction, and/or weight-based dosing when appropriate to reduce radiation dose to as low as reasonably achievable. Dictated by Hayes Baker MD @ 11/22/2022 8:53:53 PM (Electronically Signed)
--- NOTE | 2022-11-22 18:43 | ED_ITS ---
HPI - Abdominal Pain General Chief Complaint: Abdominal Pain Stated Complaint: Abdominal pain Time Seen by Provider: 11/22/22 17:58 History of Present Illness HPI narrative: This 57-year-old female comes in with abdominal pain that began yesterday morning. She has a history of recurrent diverticulitis and states that these symptoms feel similar. Pain is constant and is located diffusely in her abdomen but more intensely in the left lower quadrant. She states that she measured a fever prior to arrival here. Her temperature here records normal finding. She states that the pain is worse with any kind of movement. Related Data Home Medications Medication Instructions Recorded Confirmed cholecalciferol (vitamin D3) 25 50 mcg PO DAILY 02/16/22 10/20/22 mcg (1,000 unit) tablet multivitamin 1 tab PO QAM 02/16/22 10/20/22 prednisone 10 mg tablet 10 mg PO BID 10/20/22 10/20/22 prednisone 20 mg tablet 20 mg PO BID 10/20/22 10/20/22 Allergies Allergy/AdvReac Type Severity Reaction Status Date / Time penicillin V Allergy Severe Hives Verified 10/20/22 11:34 progesterone Allergy Severe swelling, Verified 10/20/22 11:34 burning of skin, itching, rash ciprofloxacin Allergy Intermediate Hives Verified 10/20/22 11:34 metronidazole Allergy Intermediate Rash Verified 10/20/22 11:34 Nitroimidazoles Allergy Unknown Verified 10/20/22 11:34 Iodinated Contrast Media Allergy Verified 10/20/22 11:34 Review of Systems Status of ROS Reports: 10 or more systems reviewed and unremarkable except as noted in History and below Narrative Constitutional: No fevers, no weight gain or loss. Eyes: No discharge. No vision changes. HENT: No congestion, no sore throat, no ear pain. Cardiovascular: No chest pain, no palpitations. Respiratory: No shortness of breath, no wheezes, no cough. Gastrointestinal: No vomiting, no diarrhea. Abdominal pain as described above. Genitourinary: No dysuria, no hematuria. Musculoskeletal: Normal range of motion. Skin: No rashes, no pruritis. Neurological: No dizziness, weakness, sensory change, speech change. Endo/Heme/Allergies: No bruising or bleeding. No polydipsia. Pysch: no suicidality, no anxiety, no insomnia. All other systems reviewed and are negative. 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[employer] She has a master's degree She exercises regularly She does not smoke She drinks alcohol 3 to 4 times a week She does not use recreational drugs Smoking Status: Never smoker Do you use any of these nicotine containing products: None Second hand tobacco smoke exposure: No How often do you have a drink containing alcohol: 2-3 times a week How many standard drinks containing alcohol do you have on a typical day: 1 or 2 How often do you have six or more drinks on one occasion: Never AUDIT-C Alcohol total score: 3 Non-prescribed substance use: denies use Little interest or pleasure in doing things: not at all Feeling down, depressed, or hopeless: not at all service: No Exam Narrative: Exam Narrative: Constitutional: Well-developed, well-nourished, no acute distress. HEENT: Normocephalic, atraumatic. Neck: Normal range of motion. Nontender. Supple. Heart: Regular. No murmurs. Normal rate. Intact distal pulses. Lungs: Clear to auscultation. No chest discomfort. No wheezes, rhonchi, or rales. Abdomen: Decreased bowel sounds. Diffuse pain throughout the abdomen but increased in the left lower quadrant. Rebound tenderness is present. Genitalia: Deferred. Back: No midline tenderness. Normal range of motion. Extremities: Normal range of motion. No injury. Skin: Intact. No rash. Warm. No erythema or pallor. Neurologic: No altered sensation. No weakness. Alert and oriented. Psychiatric: No suicidality. No anxiety or depression. No insomnia. Nursing notes and vitals signs are reviewed. Const: Vital Signs, click to edit/add: Vital Signs - 24 hr 11/22/22 18:00 11/22/22 19:12 11/22/22 20:35 Temperature 98.4 F 98.4 F Pulse Rate [Right Pulse Oximeter] 93 72 Respiratory Rate 18 16 Blood Pressure [Ri ght Upper Arm] 130/82 112/60 Pulse Oximetry 98 95 98 Oxygen Delivery Me thod Room Air Room Air Course Vital Signs Vital signs: Initial Vital Signs Temperature 98.4 F 11/22/22 18:00 Temperature Source Temporal Artery Scan 11/22/22 18:00 Pulse Rate 93 11/22/22 18:00 Respiratory Rate 18 11/22/22 18:00 Blood Pressure 130/82 11/22/22 18:00 Blood Pressure Mean 98 11/22/22 18:00 Pulse Oximetry 98 11/22/22 18:00 Oxygen Delivery Method Room Air 11/22/22 18:00 Vital Signs Temperature 98.4 F 11/22/22 18:00 Pulse Rate 93 11/22/22 18:00 Respiratory Rate 18 11/22/22 18:00 Blood Pressure 130/82 11/22/22 18:00 Pulse Oximetry 98 11/22/22 18:00 Oxygen Delivery Method Room Air 11/22/22 18:00 Temperature 98.4 F 11/22/22 20:35 Pulse Rate 72 11/22/22 20:35 Respiratory Rate 16 11/22/22 20:35 Blood Pressure 112/60 11/22/22 20:35 Pulse Oximetry 98 11/22/22 20:35 Oxygen Delivery Method Room Air 11/22/22 20:35 MDM - Abdominal Pain MDM Narrative Medical decision making narrative: This patient comes in with abdominal pain that is similar to prior episodes of diverticulitis. She does arrive with normal vital signs but is rather tender in her abdomen with some rebound tenderness. CT imaging is acquired and shows evidence of acute diverticulitis without complication. She does have an umbilical hernia that is not new and there is no sign of incarceration. The patient did receive an intramuscular injection of morphine 10 mg. She received prescription for Augmentin and some tablets of [place]. I advised her regarding symptoms that would indicate a need for return and re-evaluation. Imaging Data CT scan - abdomen: Radiologist's impression: 1. New uncomplicated acute diverticulitis of the transverse colon. 2. Stable additional chronic and postoperative change, as above, including anterior abdominal wall defect right lower abdomen. Discharge Plan Discharge Clinical Impression: Diverticulitis Patient Disposition: Home, Self-Care Condition: Unchanged Additional Instructions: Take medication as needed and indicated. Follow up with MD return if worsening. Prescriptions: No Action cholecalciferol (vitamin D3) 25 mcg (1,000 unit) tablet 50 mcg PO DAILY multivitamin Tablet 1 tab PO QAM prednisone 10 mg tablet 10 mg PO BID prednisone 20 mg tablet 20 mg PO BID Follow Up/Referrals: Areli Villagomez PALolita [Primary Care Provider] - Stand Alone Forms: Mobile Location, IP Info Instructions
[2022-11-22] MEDS: MORPHINE 10 MG/ML inj IM (19:02)
--- NOTE | 2022-11-22 19:11 | ED.NURSE ---
Pt placed on continuous pulse oximetry to monitor oxygen sats after IM morphine administration.
[2022-11-22 19:12] VITALS: O2SAT 95
[2022-11-22 20:35] VITALS: BP 112/60; PULSE 72; RESP 16; TEMP 36.9; O2SAT 98
[2022-11-22 21:13] VITALS: BP 125/71; PULSE 79; RESP 16; O2SAT 97
== END 2022-11-22 21:15 | disposition home or self-care (01) ==
PROVIDERS: Emergency Provider Emergency Medicine Emergency Medical Services; PCP Physician Assistant Medical
DX: K57.32 Diverticulitis of large intestine without perforation or abscess without bleeding (principal)
CPT/HCPCS: 74176; 94761; 96372; 99284; J2270

== ENCOUNTER 2023-05-13 10:00 | Outpatient (RCR) | payer BC, SELFPAY | END 2023-09-10 23:59 | disposition home or self-care (01) | PROVIDERS: PCP Physician Assistant Medical; Visit Provider Physician Assistant Medical | DX: M62.89 Other specified disorders of muscle (principal); M25.542 Pain in joints of left hand; M25.642 Stiffness of left hand, not elsewhere classified; R29.898 Other symptoms and signs involving the musculoskeletal system; R27.8 Other lack of coordination; Z51.89 Encounter for other specified aftercare | CPT/HCPCS: 97035; 97110; 97112; 97140; 97162; 97165; 97535; X5282 ==

== ENCOUNTER 2024-01-17 16:00 | Outpatient (RCR) | payer BC, SELFPAY | END 2024-03-14 15:51 | disposition home or self-care (01) | PROVIDERS: PCP Physician Assistant Medical; Visit Provider Family Medicine | DX: M94.262 Chondromalacia, left knee (principal); M17.12 Unilateral primary osteoarthritis, left knee; Z51.89 Encounter for other specified aftercare | CPT/HCPCS: 97110; 97161 ==

== ENCOUNTER 2024-04-09 17:28 | Day surgery (SDC) | payer BC, SELFPAY ==
[2024-04-09] VITALS (11 sets, daily range): BP systolic 115–178; BP diastolic 65–96; PULSE 58–75; RESP 12–18; TEMP 36.4–36.8; O2SAT 93–100; BMI 26.2
[2024-04-09 18:12] LABS: Appearance Urine Clear (Clear); Bilirubin Urine Negative (Negative); Blood Urine Negative (Negative); Color Urine Yellow (Yellow); Glucose Urine Negative (Negative); Ketones Urine Negative (Negative); Leukocyte Esterase Urine Negative (Negative); Nitrite Urine Negative (Negative); Protein Urine Negative (Negative); Specific Gravity Urine 1.015 (1.000-1.030); Urobilinogen Urine 0.2 (0.2-1.0); pH Urine 8.5 (5.0-8.5)
--- NOTE | 2024-04-09 18:13 | CRLHL7_ITS ---
For Patients: As a result of the Cures Act, medical imaging exams and procedure reports are released immediately into your electronic medical record. You may view this report before your referring provider. If you have questions, please contact your health care provider. INDICATION: Right lower quadrant pain. TECHNIQUE: CT abdomen and pelvis acquired without contrast COMPARISON: None. FINDINGS: Lower chest: Unremarkable. Liver: Unremarkable. Gallbladder and bile ducts: Cholecystectomy. No biliary ductal dilation. Pancreas: Unremarkable. Spleen: Unremarkable. Adrenal glands: Mildly nodular appearance of the left adrenal gland is similar compared to 08/04/2022, likely physiologic. Kidneys: Stable left renal cyst with peripheral calcification. Nonobstructing nephrolith in the right kidney. GI tract: Small hiatal hernia. Contents within the visualized mid esophagus. Right spigelian hernia containing distal ileal loops with minimal soft tissue stranding. No evidence of fluid in the hernia sac. No obstruction. Normal appendix. Diverticulosis without diverticulitis. Vasculature: Abdominal aorta is normal in caliber. Mesenteric arteries are patent. Lymph nodes: No lymphadenopathy. Peritoneum/Abdominal Wall: Spigelian hernia as above. Moderate fat containing periumbilical hernia. Pelvis: Pessary is in place. Bones: No acute or suspicious osseous lesions. Mild degenerative disease of the spine. IMPRESSION: Right Spigelian hernia containing distal ileal loops with minimal soft tissue stranding. Correlate with physical exam. Please note that all CT scans at this facility use dose modulation, iterative reconstruction, and/or weight-based dosing when appropriate to reduce radiation dose to as low as reasonably achievable. Dictated by Isabell Cochran MD @ 04/09/2024 7:10:55 PM (Electronically Signed)
--- NOTE | 2024-04-09 18:14 | ED.ABDPAIN ---
HPI - Abdominal Pain General Chief Complaint: Abdominal Pain Stated Complaint: lower right abdominal pain Time Seen by Provider: 04/09/24 17:30 History of Present Illness HPI narrative: This 58-year-old female comes in reporting severe right lower quadrant abdominal pain. She states that the pain is been coming and going for a few days but much worse in the last hour or 2. She states that now it is a constant pain. She has nausea. The pain is worse with any kind of movement. She does have a history of diverticulitis. She is not reporting any symptoms of dysuria. She has not had any fevers. Related Data Home Medications ?Medication ?Instructions ?Recorded ?Confirmed cholecalciferol (vitamin D3) 25 50 mcg PO DAILY 02/16/22 11/11/23 mcg (1,000 unit) tablet multivitamin 1 tab PO QAM 02/16/22 11/11/23 celecoxib 200 mg capsule mg PO 11/11/23 11/11/23 Previous Rx's ?Medication ?Instructions ?Recorded levonorgestrel-ethinyl estradiol 1 tab PO QDAY #84 tabs 11/11/23 0.1 mg-20 mcg tablet (Falmina (28)) Allergies Allergy/AdvReac Type Severity Reaction Status Date / Time penicillin V Allergy Severe Hives Verified 11/11/23 13:53 progesterone Allergy Severe swelling, Verified 11/11/23 13:53 burning of skin, itching, rash ciprofloxacin Allergy Intermediate Hives Verified 11/11/23 13:53 metronidazole Allergy Intermediate Rash Verified 11/11/23 13:53 Nitroimidazoles Allergy Unknown Verified 11/11/23 13:53 Iodinated Contrast Media Allergy Verified 11/11/23 13:53 Review of Systems Status of ROS Reports: 10 or more systems reviewed and unremarkable except as noted in History and below Narrative Constitutional: No fevers, no weight gain or loss. Eyes: No discharge. No vision changes. HENT: No congestion, no sore throat, no ear pain. Cardiovascular: No chest pain, no palpitations. Respiratory: No shortness of breath, no wheezes, no cough. Gastrointestinal: No vomiting, no diarrhea. Severe abdominal pain in the right lower quadrant. Genitourinary: No dysuria, no hematuria. Musculoskeletal: Normal range of motion. Skin: No rashes, no pruritis. Neurological: No dizziness, weakness, sensory change, speech change. Endo/Heme/Allergies: No bruising or bleeding. No polydipsia. Pysch: no suicidality, no anxiety, no insomnia. All other systems reviewed and are negative. [facility] Medical History (Updated 04/09/24 @ 19:45 by Vinh Reyes MD) Diverticulitis ?K57.92 - Diverticulitis of intestine, part unspecified, without perforation or abscess without bleeding (ICD-10) Rectocele ?N81.6 - Rectocele (ICD-10) Perimenopause ?N95.1 - Menopausal and female climacteric states (ICD-10) Angioedema ?T78.3XXA - Angioneurotic edema, initial encounter (ICD-10) Lung mass ?R91.8 - Other nonspecific abnormal finding of lung field (ICD-10) Atrial fibrillation ?I48.91 - Unspecified atrial fibrillation (ICD-10) Abnormal uterine bleeding ?N93.9 - Abnormal uterine and vaginal bleeding, unspecified (ICD-10) Surgical History History of lung biopsy ?Z98.890 - Other specified postprocedural states (ICD-10) S/P dilation and curettage ?Z98.890 - Other specified postprocedural states (ICD-10) S/P cholecystectomy ?Z90.49 - Acquired absence of other specified parts of digestive tract (ICD-10) Stone in kidney ?N20.0 - Calculus of kidney (ICD-10) Family History Aunt Diabetes Other Colon cancer Ovarian cancer Social History Narrative: Mental health professional: 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[employer] She has a master's degree She exercises regularly She does not smoke She drinks alcohol 3 to 4 times a week She does not use recreational drugs Smoking Status: Never smoker Do you use any of these nicotine containing products: None Second hand tobacco smoke exposure: No How often do you have a drink containing alcohol: 2-3 times a week How many standard drinks containing alcohol do you have on a typical day: 1 or 2 How often do you have six or more drinks on one occasion: Never AUDIT-C Alcohol total score: 3 Non-prescribed substance use: denies use Little interest or pleasure in doing things: not at all Feeling down, depressed, or hopeless: not at all service: No Exam Narrative: Exam Narrative: Constitutional: Well-developed, well-nourished, no acute distress. HEENT: Normocephalic, atraumatic. Neck: Normal range of motion. Nontender. Supple. Heart: Regular. No murmurs. Normal rate. Intact distal pulses. Lungs: Clear to auscultation. No chest discomfort. No wheezes, rhonchi, or rales. Abdomen: Decreased bowel sounds. Rovsing sign is positive. Pain in the right lower quadrant. Rebound tenderness is present. Genitalia: Deferred. Back: No midline tenderness. Normal range of motion. Extremities: Normal range of motion. No injury. Skin: Intact. No rash. Warm. No erythema or pallor. Neurologic: No altered sensation. No weakness. Alert and oriented. Psychiatric: No suicidality. No anxiety or depression. No insomnia. Nursing notes and vitals signs are reviewed. Const: Vital Signs, click to edit/add: Vital Signs - 24 hr 04/09/24 17:33 04/09/24 18:32 Temperature 97.6 F Pulse Rate 69 Pulse Rate [Right Pulse Oximeter] 67 Respiratory Rate 18 18 Blood Pressure 155/96 H Blood Pressure [Ri ght Upper Arm] 178/82 H Pulse Oximetry 94 100 Oxygen Delivery Me thod Room Air Course Vital Signs Vital signs: Initial Vital Signs Temperature 97.6 F 04/09/24 17:33 Temperature Source Temporal Artery Scan 04/09/24 17:33 Pulse Rate 67 04/09/24 17:33 Respiratory Rate 18 04/09/24 17:33 Blood Pressure 178/82 H 04/09/24 17:33 Blood Pressure Mean 114 H 04/09/24 17:33 Blood Pressure Position Sitting 04/09/24 17:33 Pulse Oximetry 94 04/09/24 17:33 Oxygen Delivery Method Room Air 04/09/24 17:33 Vital Signs Temperature 97.6 F 04/09/24 17:33 Pulse Rate 67 04/09/24 17:33 Respiratory Rate 18 04/09/24 17:33 Blood Pressure 178/82 H 04/09/24 17:33 Pulse Oximetry 94 04/09/24 17:33 Oxygen Delivery Method Room Air 04/09/24 17:33 Temperature 97.6 F 04/09/24 17:33 Pulse Rate 69 04/09/24 18:32 Respiratory Rate 18 04/09/24 18:32 Blood Pressure 155/96 H 04/09/24 18:32 Pulse Oximetry 100 04/09/24 18:32 Oxygen Delivery Method Room Air 04/09/24 17:33 Medications Administered Medications: Generic Name Dose Route Start Last Admin Trade Name Freq PRN Reason Stop Dose Admin Hydromorphone HCl 0.5 mg 04/09/24 19:17 04/09/24 19:26 Hydromorphone 0.5 Mg/0.5 Ml Inj IVP 04/09/24 19:18 0.5 mg ONCE ONE Administration Discontinued Medications Generic Name Dose Route Start Last Admin Trade Name Freq PRN Reason Stop Dose Admin Hydromorphone HCl 0.5 mg 04/09/24 18:13 04/09/24 18:30 Hydromorphone 0.5 Mg/0.5 Ml Inj IVP 04/09/24 18:14 0.5 mg ONCE ONE Administration Midazolam HCl 2 mg 04/09/24 19:21 04/09/24 19:28 Midazolam Hcl 1 Mg/Ml Inj IVP 04/09/24 19:22 Not Given ONCE ONE Ondansetron HCl 4 mg 04/09/24 18:13 04/09/24 18:30 Ondansetron 2 Mg/Ml Inj IVP 04/09/24 18:14 4 mg ONCE ONE Administration MDM - Abdominal Pain MDM Narrative Medical decision making narrative: This patient comes in with severe pain in the right lower quadrant. She states that this pain started about an hour prior to arrival here and that she has been having pain on and off over the last days or weeks. She was rather uncomfortable on my initial visit so an IV was established and the patient did receive IV doses of Dilaudid 0.5 mg and Zofran 4 mg. This brought some temporary relief to her pain. CT scan of the abdomen and pelvis is obtained and does show evidence of a hernia with part of the distal ileum protruding through. She is behaving like a incarcerated hernia but does not have any sign of obstruction or other complication. The patient did receive another dose of Dilaudid 0.5 mg. I did speak with the surgeon on-call, Dr. Shea, who reviewed CT imaging results and decided to come in and arrange for surgery this evening. Lab Data Labs: Lab Results 04/09/24 04/09/24 Range/Units 18:01 18:25 WBC 12.26 H (4.50-11.00) K/uL RBC 4.45 (4.00-5.20) m/uL Hgb 13.2 (12.0-16.0) gm/dL Hct 39.9 (33.0-51.0) % MCV 90 (80-100) fL MCH 30 (26-34) pg MCHC 33 (32-36) gm/dL RDW Coeff of [place]shan 13.3 (11.5-15.5) % Plt Count 333 (140-440) K/uL Neut % (Auto) 67.9 (42.0-72.0) % Lymph % (Auto) 23.7 (20-44) % [place] % (Auto) 7.1 (0.0-11.0) % Eos % (Auto) 0.7 (0.0-7.0) % Baso % (Auto) 0.5 (0.0-3.0) % Neut # (Auto) 8.30 H (1.7-7.0) K/uL Lymph # (Auto) 2.90 (0.90-2.90) K/uL [place] # (Auto) 0.90 (0.00-0.90) K/UL Eos # (Auto) 0.10 (0.00-0.50) K/uL Baso # (Auto) 0.10 (0.00-0.30) K/uL Abs Immat Gran (auto) 0.00 (0.00-0.30) K/uL Imm/Tot Granulo (auto) 0.1 % Sodium 139 (135-149) mmol/L Potassium 3.0 L (3.6-5.1) mmol/L Chloride 104 (96-114) mmol/L Carbon Dioxide 22 (20-32) mmol/L Anion Gap 13 (7-15) mEq/L BUN 15 (7-30) mg/dL Creatinine 0.6 (0.5-1.5) mg/dL Estimated Creat Clear 103.10 Estimated GFR 104 ml/min Glucose 105 (60-115) mg/dL Calcium 10.1 (8.4-10.6) mg/dL Urine Color Yellow (Yellow) Urine Appearance Clear (Clear) Urine pH 8.5 (5.0-8.5) Ur Specific [place] 1.015 (1.000-1.030) Urine Protein Negative (Negative) Urine Glucose (UA) Negative (Negative) Urine Ketones Negative (Negative) Urine Blood Negative (Negative) Urine Nitrite Negative (Negative) Urine Bilirubin Negative (Negative) Urine Urobilinogen 0.2 (0.2-1.0) Ur Leukocyte Esterase Negative (Negative) Urine RBC 0-2 (0-2) Urine WBC 0-2 (0-5) Ur Squamous Epith Cells None (None-Few) Urine Bacteria None (None) Imaging Data CT scan - abdomen: Radiologist's impression: Right Spigelian hernia containing distal ileal loops with minimal soft tissue stranding. Correlate with physical exam. Discharge Plan Discharge Clinical Impression: Incarcerated hernia Patient Disposition: XFER to OR Condition: Unchanged Prescriptions: No Action cholecalciferol (vitamin D3) 25 mcg (1,000 unit) tablet 50 mcg PO DAILY multivitamin Tablet 1 tab PO QAM celecoxib 200 mg capsule PO levonorgestrel-ethinyl estrad [Falmina (28)] 0.1-20 mg-mcg tablet 1 tab PO QDAY Qty: 84 3RF Follow Up/Referrals: Areli Villagomez PA-C [Primary Care Provider] -
[2024-04-09 18:20] LABS: RBC Urine 0-2 (0-2); WBC Urine 0-2 (0-5)
[2024-04-09] MEDS: HYDROmorphone 0.5 mg/0.5 ml inj IVP ×3 (18:30→23:55)
[2024-04-09] MEDS: ONDANSETRON 2 MG/ML inj 4 MG IVP (18:30)
[2024-04-09 18:39] LABS: Basophils Percent Auto 0.5 % (0.0-3.0); Eosinophils Percent Auto 0.7 % (0.0-7.0); Hematocrit 39.9 % (33.0-51.0); Hemoglobin* 13.2 gm/dL (12.0-16.0); Immature Granulocytes Pct Auto 0.1 %; Lymphocytes Percent Auto 23.7 % (20-44); Mean Corpuscular HGB Conc 33 gm/dL (32-36); Mean Corpuscular Hemoglobin 30 pg (26-34); Mean Corpuscular Volume 90 fL (80-100); Monocytes Percent Auto 7.1 % (0.0-11.0); Neutrophils Percent Auto 67.9 % (42.0-72.0); Platelet Count* 333 K/uL (140-440); RDW Coefficient of Variation % 13.3 % (11.5-15.5); Red Blood Count 4.45 m/uL (4.00-5.20); White Blood Count* 12.26 K/uL (4.50-11.00)
[2024-04-09 18:40] LABS: Slide Review Reflex No
--- OUTSIDE RECORDS SUMMARY | 2024-04-09 18:49 | XMS_ITS | Clinical Summary ---
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 Name Role Phone Unavailable Primary Care Provider Unavailabl e Allergies Active Allergy Reactions Criticality Noted Date Comments Ciprofloxacin Hives 03/01/2014 Diatrizoate Hives 04/05/2016 Pt received contrast in June and within 4 hours after being home she developed huge welts from her chin down to her pelvis that lasted for days Penicillins Hives,Itching,Rash,S well ing Low 10/19/2006 rash Medications Medication Sig Dispensed Refills Start Date End Date Status predniSONE (DELTASONE) 10 MG tablet 02/19/2020 Active Active Problems Problem Noted Date Diagnosed Date Rash and nonspecific skin eruption 03/18/2020 Immunizations Name Administration Dates Next Due Influenza (IIV3) PF 04/20/2004 Social History Tobacco Use Types Packs/Day Years Used Date Smoking Tobacco: Never Smokeless Tobacco: Never Alcohol Use Standard Drinks/Week Comments Yes 0 (1 standard drink = 0.6 oz pur e alcohol) Adolescent Education Answer Date Record ed Getting School Help Needed Not on file 03/27 Sex and Gender Information Value Date Recorded Sex Assigned at Female 03/18/2020 3:25 PM CDT Gender Identity Not on file Sexual Orientation Not on file Plan of Treatment Not on file [address] [place] [id number]
--- OUTSIDE RECORDS SUMMARY | 2024-04-09 18:49 | XMS_ITS | Clinical Summary ---
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 views were obtained. ??This study was evaluated with the assistance of Computer-Aided Detection. Breast Tomosynthesis was used in interpretation. COMPARISON FILM: Yes 03/02/22 [place] MR [employer] 02/13/21 [employer] FINDINGS: ??The breasts are heterogeneously dense, which may obscure small masses. There are no dominant masses, suspicious micro calcifications or areas of architectural distortion. Areli BOSCH MAMMO * (ABNORMAL) LIPID PANEL W REFLEX MEASURED LDL (01/10/2017 4:02 PM CDT) CHOLESTEROL,TOTAL 187 100 - 199 mg/dL 01/10/2017 8:38 PM CDT [facility] TRIGLYCERIDES 170(H) <150 mg/dL 01/10/2017 8:38 PM CDT [facility] HDL CHOLESTEROL 47 >40 mg/dL 7 8:38 PM CDT [facility] NON-HDL CHOLESTEROL 140 <145 mg/dl 01/10/2017 8:38 PM CDT [facility] CHOL/HDL RATIO 3.98 <4.50 01/10/2017 8:38 PM CDT [facility] LDL CHOLESTEROL 106 <=130 mg/dL 01/10/2017 8:38 PM CDT [facility] PATIENT STATUS FASTING 01/10/2017 8:[address] [facility] Blood BLOOD SPECIMEN / Unknown Venipuncture / Unknown 01/10/2017 4:02 PM CDT 01/10/2017 4:02 PM CDT Areli BOSCH [facility]STRY [facility] [address] [place] [address], [facility] [address] [place] [address], * SEATING CAPTAIN THIN PREP PAP SCREEN IMAGED (01/10/2017 3:58 PM CDT) Case Report Gynecologic Cytology Report ? Case: [id number] ? Authorizing Provider: ??Areli Villagomez PA Collected: ? 01/10/2017 1558 ? Ordering Location: ? [facility] ?? Received: ?01/10/2017 1558 ? Clinic ? First Screen: ?Antionette Hernández ? Specimen: ?SEATING CAPTAIN ThinPrep Vial Screening, Cervical ? 01/17/2017 11:48 AM CDT [facility] INTERPRETATION/ RESULT NEGATIVE FOR INTRAEPITHELIAL LESION OR MALIGNANCY (NIL) (none) 01/17/2017 11:48 AM CDT [facility] IMEN ADEQUACY Satisfactory for evaluation Endocervical component present 01/17/2017 11:48 AM CDT [facility] HPV REQUEST HPV if ASCUS 01/17/2017 11:48 AM CDT [facility] Date of LMP 12/15/2016 01/17/2017 11:48 AM CDT [facility] Last Pap Date 08/20/2013 01/17/2017 11:48 AM CDT [facility] Last Pap Result NIL 7 11:48 AM CDT [facility] Abnormal Pap or [place] Bx in last 5 years No 01/17/2017 11:48 AM CDT [facility] Menstrual Status Regular Periods 01/17/2017 11:48 AM CDT [facility] [place] Bx Done Today No 01/17/2017 11:48 AM CDT [facility] Additional Information None given 01/17/2017 11:48 AM CDT [facility] Automated Review Successful 01/17/2017 11:48 AM CDT [facility] Comment:Specimen processed s uccessfully by automated automobiles salesperson device, ThinPrep Imaging System, [employer] Note The pap test is a screening technique, not a diagnostic procedure. ??It is used primarily to screen for squamous cancers and precursor lesions. ??Published studies have shown that it is subject to both false negative and false positive results. ??The pap test should not be used as the sole means to diagnose or exclude pre-malignant and malignant lesions. Interpreted at [facility] ([facility] Lab, [facility], [facility], [facility], [facility], [facility], [facility]) 01/17/2017 11:48 AM CDT [facility] Other (Cervical) 01/10/2017 3:58 PM CDT 01/10/2017 3:58 PM CDT Areli BOSCH PATHOLOGY/CYTOL OGY [facility] [address] [place] [address], * ANTI HCV (04/13/2011 12:49 PM CDT) ANTI HCV Non-reacti ve [facility] Blood specimen (specimen) BLOOD SPECIMEN / Unknown 04/13/2011 12:49 PM CDT 04/13/2011 12:39 PM CDT Sabrina BOSCH SEND OUTS [facility] [place]NAL ZIP [id number] [place] [address] * ANTI HIV 1/2 (04/13/2011 12:49 PM CDT) ANTI HIV 1/2 Non-reacti ve [facility] Blood specimen (specimen) BLOOD SPECIMEN / Unknown 04/13/2011 12:49 PM CDT 04/13/2011 12:39 PM CDT Sabrina BOSCH SEND OUTS [facility] INTERNAL ZIP [id number] [address] from Last 3 Months or Most Recently Relevant to Health Maintenance Advance Directives * Full Code (Latest Code Status on File) Date Activated Date Inactivated Comments 03/19/2015 6:48 AM 03/19/2015 3:58 PM Care Teams Construction Laborer Relationship Specialty Start Date End Date Areli Villagomez PA [address] [place] [address] PCP - General Family Practice 08/03/13 Yael Nazario MD [address] [facility] [address] [place] [address] Rheumatology Rheumatology 06/24/14 Giovanna Rodriguez, RN, BSN [address] [place] [id number] Orthodontic Technician Registered Nurse 03/05/[address] [facility] [place] [address] Logging Crew Supervisor 09/27/23
--- OUTSIDE RECORDS SUMMARY | 2024-04-09 18:49 | XMS_ITS | Referral Summary ---
Author Organization [facility] Address [address] [place] [address] Care Team Providers Care Hospitality Host Name Role Phone Unavailable Primary Care Provider [...] Not on file [address] [place] [address] [id number]
[2024-04-09 18:52] LABS: Chloride* 104 mmol/L (96-114); Sodium* 139 mmol/L (135-149)
[2024-04-09 18:54] LABS: Creatinine* 0.6 mg/dL (0.5-1.5); Estimated Glomerular Filt Rate 104 ml/min
[2024-04-09 18:55] LABS: Anion Gap 13 mEq/L (7-15); Blood Urea Nitrogen* 15 mg/dL (7-30); Calcium* 10.1 mg/dL (8.4-10.6); Carbon Dioxide* 22 mmol/L (20-32); Glucose* 105 mg/dL (60-115)
--- NOTE | 2024-04-09 20:54 | P.GSOP_ITS ---
Operative Note Date of procedure: 04/09/24 Pre-op diagnosis: 1. Incarcerated right spigelian hernia 2. Asymptomatic incidental umbilical hernia Post-op diagnosis: 1. Incarcerated right inginal hernia 2. Asymptomatic incidental umbilical hernia Type of Procedure: 1. Exploratory laparoscopy 2. Laparoscopic repair of incarcerated right inguinal hernia with mesh 3. Open primary repair 1.5 cm umbilical hernia. Indications: The patient is a 58-year-old female who presented to the emergency department with severe right groin pain for several hours duration. She was found on imaging to have an incarcerated hernia. Initially this was thought to be radiographically possibly a spigelian hernia. Because of ongoing pain and concern for incarceration I recommended emergent exploration and she agreed to proceed. Procedure Description: After discussing the risks and benefits of the procedure, the patient signed informed consent.? The operative site was marked and the patient was brought to the operating room and placed on the operating table in supine position.? Care was taken to pad the patient's pressure points.?? The patient was then intubated by anesthesia.?? The operative site was then prepped and draped in the usual sterile fashion.? A time-out was then performed. Enters the abdomen was obtained via Visiport technique in the left upper quadrant. The layers of the abdominal wall were visualized as I passed through. The abdomen was then insufflated and briefly surveyed. The patient had an umbilical hernia containing omentum. The small bowel that had been within the hernia reduced. It appeared as though the patient had a right inguinal hernia rather than a spigelian hernia. As the opening was noted just lateral to the epigastric vessels in the pelvis. I placed a 5 mm port in the left lower quadrant under direct vision. Using LigaSure, I then divided the attachments between the omentum and the hernia and was able to reduce this. I then used the hernia site as the location for a port. I created an incision in the skin and placed a 10 mm port through the hernia opening. I began by running the small bowel from the ileocecal valve retrograde. The portion of ileum that had been incarcerated appeared very mildly hemorrhagic however there was no significant edema or ischemia. I ran the bowel further to ensure no other concerning areas. There was an additional loop again that appeared faintly darker pink as though it had potentially been within the her sharmaine, however again this did not appear even edematous. Since the bowel all appeared to be viable without any concern for ischemia I elected to proceed with a laparoscopic repair. I incised the peritoneum above the opening using the LigaSure. A preperitoneal space was then created. The hernia was encountered and it was reduced. Dissection was taken laterally to the pelvic sidewall as well as medially until the pubic bone was encountered. Once the hernia was reduced, the round ligament was identified and dissected circumferentially. This was then ligated with clips and divided. A piece of large Bard 3DMax mesh was then obtained and placed into the abdomen. This was positioned with a marker pointed medially. This appropriately cover the hernia opening. Tacks were used to secure the mesh medially at Ron's ligament as well as laterally on the lateral abdominal wall above the inguinal ligament. Once this was done, the peritoneum was then closed with V lock suture. The ports were removed and the abdomen was desufflated. I then turned my attention to closing the port site at the patient's umbilical hernia. And cautery I excised the hernia sac. I removed the umbilicus from its attachment on the fascia. Once the fascial edges were identified and freed, I closed the fascial defect using 0 Nurolon in a [id number] fashion. The belly button was then tacked back down to the fascia using 3-0 Vicryl. The skin was then closed with 3-0 Vicryl dermal and 4-0 Monocryl running subcuticular suture. The additional port sites were closed with Monocryl subcuticular suture . Sterile dressings were then applied. ? The patient was then woken and transported to the recovery area in stable condition. ? The patient tolerated the procedure well. Findings: Incarcerated right indirect inguinal hernia Incarcerated umbilical hernia. Implants: Bard 3DMax Anesthesia: GETA Surgeon: Estee Shea MD Estimated blood loss (mL): 5 Condition: stable Disposition: PACU
--- NOTE | 2024-04-09 20:54 | PM.GSHP ---
History of Present Illness History of Present Illness Date Seen: 04/09/24 Chief complaint: lower right abdominal pain Narrative: Fiona Blankenship is a 58 year old female who presents to the emergency department this evening with severe right lower quadrant pain. She states that she has had this pain on and off since January. However, around 4:00 p.m. she developed fairly severe pain. This was while she was standing. Nothing made the pain better or worse. She tried laying down and moving. The pain was severe enough that she came to the emergency department. She has a history of this type of pain which has occurred on and off since January. She was evaluated on February 15 and was found to have a small right-sided hernia as well reticulocyte S. She also was noted to have kidney stones. She saw a urologist early this week who did not feel that her symptoms were consistent with kidney stones. She states that when the discomfort had come on previously with come on at random not necessarily with lifting. She states the pain would go away abruptly. With her most recent episode of discomfort she has had nausea but no vomiting. She had a bowel movement today which was normal. The pain is constant but pain medication administered in the emergency department helped. She states that the pain radiates towards her pubis. [facility] Medical History (Updated 04/09/24 @ 21:11 by Estee Shea MD) Atrial fibrillation ?I48.91 - Unspecified atrial fibrillation (ICD-10) Diverticulitis ?K57.92 - Diverticulitis of intestine, part unspecified, without perforation or abscess without bleeding (ICD-10) Rectocele ?N81.6 - Rectocele (ICD-10) Perimenopause ?N95.1 - Menopausal and female climacteric states (ICD-10) Angioedema ?T78.3XXA - Angioneurotic edema, initial encounter (ICD-10) Lung mass ?R91.8 - Other nonspecific abnormal finding of lung field (ICD-10) Abnormal uterine bleeding ?N93.9 - Abnormal uterine and vaginal bleeding, unspecified (ICD-10) Surgical History History of lung biopsy ?Z98.890 - Other specified postprocedural states (ICD-10) S/P dilation and curettage ?Z98.890 - Other specified postprocedural states (ICD-10) S/P cholecystectomy ?Z90.49 - Acquired absence of other specified parts of digestive tract (ICD-10) Stone in kidney ?N20.0 - Calculus of kidney (ICD-10) Family History (Updated 04/09/24 @ 21:05 by Estee Shea MD) Aunt Diabetes Other Colon cancer Ovarian cancer Social History Narrative: Mental health professional: 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 [employer] She has a master's degree She exercises regularly She does not smoke She drinks alcohol 3 to 4 times a week She does not use recreational drugs Smoking Status: Never smoker Do you use any of these nicotine containing products: None Second hand tobacco smoke exposure: No How often do you have a drink containing alcohol: 2-3 times a week How many standard drinks containing alcohol do you have on a typical day: 1 or 2 How often do you have six or more drinks on one occasion: Never AUDIT-C Alcohol total score: 3 Non-prescribed substance use: denies use Little interest or pleasure in doing things: not at all Feeling down, depressed, or hopeless: not at all service: No Meds Home Medications and Allergies Home Medications ?Medication ?Instructions ?Recorded ?Confirmed ?Type cholecalciferol (vitamin D3) 25 50 mcg PO DAILY 02/16/22 11/11/23 History mcg (1,000 unit) tablet multivitamin 1 tab PO QAM 02/16/22 11/11/23 History celecoxib 200 mg capsule mg PO 11/11/23 11/11/23 History Allergies Allergy/AdvReac Type Severity Reaction Status Date / Time penicillin V Allergy Severe Hives Verified 11/11/23 13:53 progesterone Allergy Severe swelling, Verified 11/11/23 13:53 burning of skin, itching, rash ciprofloxacin Allergy Intermediate Hives Verified 11/11/23 13:53 metronidazole Allergy Intermediate Rash Verified 11/11/23 13:53 Nitroimidazoles Allergy Unknown Verified 11/11/23 13:53 Iodinated Contrast Media Allergy Verified 11/11/23 13:53 Exam Narrative: Exam Narrative: General appearance: Alert, cooperative, and in no distress Eyes: PERRLA, eye lids clear, and sclera white HENT Head: Normocephalic Ears: External ears normal Pulmonary: Clear to auscultation bilaterally Cardiovascular Heart: Regular rate and rhythm Extremities: warm and well perfused Gastrointestinal Abdominal: Laparoscopic scars consistent with surgical history. Patient is tender across the lower abdomen. She states that the pain radiates toward her pubic bone. No discrete palpable mass noted. Umbilical hernia noted. Musculoskeletal: Extremities: Upper: Both upper extremities have normal joint range of motion and intact strength. Lower: Both lower extremities have normal joint range of motion and intact strength. Skin: Normal skin color, texture, and turgor. Neurologic: No focal deficits Psychiatric: Alert, oriented, cooperative, normal affect. Const: Vital Signs, click to edit/add: Vital Signs - 24 hr 04/09/24 17:33 04/09/24 18:32 04/09/24 19:02 Temperature 97.6 F Pulse Rate 69 58 L Pulse Rate [Right Pulse Oximeter] 67 Respiratory Rate 18 18 18 Blood Pressure 155/96 H 169/95 H Blood Pressure [Ri ght Upper Arm] 178/82 H Pulse Oximetry 94 100 100 Oxygen Delivery Me thod Room Air Results Results Labs: White blood cell count in the emergency department was elevated at 12. She is mildly hypokalemic with a potassium of 3.[address] scan report/results: report reviewed and image reviewed Additional studies: CT scan abdomen and pelvis done 04/09/2024: IMPRESSION: Right Spigelian hernia containing distal ileal loops with minimal soft tissue stranding. Correlate with physical exam. Dictated by Isabell Cochran MD @ 04/09/2024 7:10:55 PM Progress Note:A&P Assessment and plan (1) Incarcerated hernia: Status: Acute (2) Atrial fibrillation: Status: Acute (3) Hypokalemia: Status: Acute Plan The patient is a 58-year-old female with an incarcerated right lower quadrant hernia, appears to be spigelian on imaging, however the patient is describing symptoms radiating to her groin which may represent an inguinal hernia. Because the bowel is incarcerated she has persistent pain and elevated white blood cell count I recommended emergent repair to ensure no bowel compromise. We discussed hernia repair and the use of mesh to decrease risk of hernia recurrence. Given the concern for bowel ischemia, likely I will use a bioprosthetic mesh rather than permanent polypropylene mesh. We discussed risks of surgery including injury to other structures, bleeding, infection as well as the possible need for bowel resection and the need to perform an open procedure. We also discussed recovery. She should be able to discharge home tomorrow if no bowel resection is necessary, however if bowel resection is required, then she will need to remain inpatient. -will plan on replacing potassium postoperatively. -will place her on secured entrance monitor given history of AFib per her report.
[2024-04-09] MEDS: LACTATED RINGERS 1000 ML 1,000 ML 75 ML IV (21:00)
--- OUTSIDE RECORDS SUMMARY | 2024-04-09 21:05 | XMS_ITS | Clinical Summary ---
Author Organization [facility] Address [place], [place] [address] Care Team Providers Care Assembly Press Operator Name Role Phone Areli Villagomez Primary Care Provider Yael Nazario MD Unavailable [phone] Giovanna Rodriguez RN, BSN Unavailable Choco Weiss Unavailable Allergies Active Allergy Reactions [...] 05/15/2008 Overview (01/14/2022): Overview: 05/15/2008 LSIL 06/14/2008 [place]: MARY 1 04/13/2011 ASCUS/HPV Negative Plan: Pap/HPV [...] 05/15/2008 02/18/2024 Overview (01/24/2017): 05/15/2008 LSIL 06/14/2008 [place]: MARY 1 04/13/2011 ASCUS/HPV Negative Plan: Pap/HPV 01/2020 Depressive disorder, not elsewhere classified 10/20/19 07 05/15/2008 Encounters Date Type Department Care Team Description 03/20/2024 Medical Messaging [facility] [address] [place] [address] Areli Villagomez PA Kidney stones 02/16/2024 11:30 AM CDT Ancillary Procedure [facility] [address] [place] [address] 02/16/2024 8:30 AM CDT Office Visit [facility] [address] [place] [address] Fiona Keith PA Gi Problem (Thinks she [...] Name Administration Dates Next Due COVID-19 vaccine ([employer] NTech 30mcg/0.3mL) 12YO+ BRADY-SUCROSE PF, MDV 11/20/2021 [...] Body Mass Index 28.4 07/18/2023 3:06 PM WOOL HAT HYDRAULICKER Plan of Treatment Upcoming Encounters Date Type Department Care Team (Late st Contact Info) Description 04/11/2024 2:20 PM CDT Office Visit [facility] [address] [place] [address] Areli Villagomez PA [address] [place] [address] Health Maintenance Due Date Last Done Comments Zoster (shingles) series for age 50+ (1 of 2) 2015 Lipids for age 45-75 01/10/2022 01/10/2017, 09/24/2013, 05/22/2008 Pap test for age 21-65 06/09/2023 0 ([facility] 01/10/2017, 01/10/2017, Additional history exists Depression screening [...] YE BILAT SCREEN Routine 07/29/2023 4:05 PM WOOL HAT HYDRAULICKER Visit for screening mammogram LIPID PANEL W REFLEX MEASURED LDL Routine 01/10/2017 4:02 PM CDT Screening cholesterol level JAVA DEVELOPER CONSULTANT THIN PREP PAP SCREEN IMAGED Routine 01/10/2017 [...] None Seen /HPF 02/16/2024 9:25 AM CDT [facility] WBC 0-2 0-2, 3-5, None Seen /HPF 02/16/2024 9:25 AM CDT [facility] BACTERIA Few None Seen, Rare, Few Bacteria/H PF 02/16/2024 9:25 AM CDT [facility] EPITHELIAL CELLS Few None Seen, Few Epi/HPF 02/16/2024 9:25 AM CDT [facility] Urine URINE SPECIMEN / Unknown Non-Blood / Unknown 02/16/2024 9:17 AM CDT 02/16/2024 9:17 AM CDT Fiona BOSCH URINE [facility] [address] [place] [address], * (ABNORMAL) UA W/ SEDIMENT EXAM REFLEXED PER CRITERIA (02/16/2024 9:17 AM CDT) COLOR Yellow Yellow Color 02/16/2024 9:26 AM CDT [facility] CLARITY Clear Clear Clarity 02/16/2024 9:26 AM CDT [facility] SPECIFIC GRAVITY,URINE 1.020 1.010, 1.015, 1.020, 1.025 02/16/2024 9:26 AM CDT [facility] PH,URINE 7.0 6.0, 7.0, 8.0, 5.5, 6.5, 7.5, 8.5 02/16/2024 9:26 AM CDT [facility] UROBILINOGEN,QU ALITATIVE Increased(A) Normal EU/dl 02/16/2024 9:26 AM CDT [facility] PROTEIN, URINE Negative Negative mg/dL 02/16/2024 9:26 AM CDT [facility] GLUCOSE, URINE Negative Negative mg/dL 02/16/2024 9:26 AM CDT [facility] KETONES,URINE 15(A) Negative mg/dL 02/16/2024 9:26 AM CDT [facility] BILIRUBIN,URINE Abnormal(A) Negative 02/16/20 9:26 AM CDT [facility] Comment:A variety of metabol ites and/or medications may result in a positive bilirubin result. Clinical correlation is recommended. OCCULT BLOOD,URINE Trace(A) Negative 02/16/2024 9:26 AM CDT [facility] NITRITE Negative Negative 02/16/2024 9:26 AM CDT [facility] LEUKOCYTE ESTERASE Negative Negative 02/16/2024 9:26 AM CDT [facility] Urine URINE SPECIMEN / Unknown Non-Blood / Unknown 02/16/2024 9:17 AM CDT 02/16/2024 9:17 AM CDT Fiona BOSCH URINE Performing Organization Address City/State/[facility] Co de Phone Number [facility] [address] [place] [address], * CBC WITH AUTO DIFFERENTIAL (02/16/2024 9:14 AM CDT) WHITE BLOOD COUNT 6.5 4.5 - 11.0 thou/cu mm 02/16/2024 9:23 AM CDT [facility] RED BLOOD COUNT 4.24 4.00 - 5.20 mil/cu mm 02/16/2024 9:23 AM CDT [facility] HEMOGLOBIN 12.8 12.0 - 16.0 g/dL 02/16/2024 9:23 AM CDT [facility] HEMATOCRIT 39.5 33.0 - 51.0 % 02/16/2024 9:23 AM CDT [facility] MCV 93 80 - 100 fL 02/16/2024 9:23 AM CDT [facility] MCH 30.2 26.0 - 34.0 pg 02/16/2024 9:23 AM CDT [facility] MCHC 32.4 32.0 - 36.0 g/dL 02/16/2024 9:23 AM CDT [facility] RDW 13.6 11.5 - 15.5 % 02/16/2024 9:23 AM CDT [facility] PLATELET COUNT 397 140 - 440 thou/cu mm 02/16/2024 9:23 AM CDT [facility] MPV 9.9 6.5 - 11.0 fL 02/16/2024 9:23 AM CDT [facility] % NEUT 61.8 % 02/16/2024 9:23 AM CDT [facility] % LYMPH 25.0 % 02/16/2024 9:23 AM CDT [facility] % MONO 10.1 % 02/16/2024 9:23 AM CDT [facility] % EOS 2.8 % 02/16/2024 9:23 AM CDT [facility] % BASO 0.3 % 02/16/2024 9:23 AM CDT [facility] ABSOLUTE NEUTROPHILS 4.0 1.7 - 7.0 thou/cu mm 02/16/2024 9:23 AM CDT [facility] ABSOLUTE LYMPHOCYTES 1.6 0.9 - 2.9 thou/cu mm 02/16/2024 9:23 AM CDT [facility] ABSOLUTE MONOCYTES 0.7 <0.9 thou/cu mm 02/16/2024 9:23 AM CDT [facility] ABSOLUTE EOSINOPHILS 0.2 <0.5 thou/cu mm 02/16/2024 9:23 AM CDT [facility] ABSOLUTE BASOPHILS 0.0 <0.3 thou/cu mm 02/16/2024 9:23 AM CDT [facility] Blood BLOOD SPECIMEN / Unknown Venipuncture / Unknown 02/16/2024 9:14 AM CDT 02/16/2024 9:15 AM CDT Fiona BOSCH HEMATOLOGY Performing Organization Address City/[facility]/ZIP Co de Phone Number [facility] [address] [place] [address], * (ABNORMAL) C-REACTIVE PROTEIN (02/16/2024 9:14 AM CDT) C-REACTIVE PROTEIN 10.0(H) <0.5 mg/dL 02/16/2024 1:10 PM CDT [facility] Blood BLOOD SPECIMEN / Unknown Venipuncture / Unknown 02/16/2024 9:14 AM CDT 02/16/2024 9:15 AM CDT Fiona BOSCH CHEMISTRY Performing Organization Address City/[facility]/ZIP Co de Phone Number [facility] [address] [place] [address] * LIPASE (02/16/2024 9:14 AM CDT) Pathologist [facility] LIPASE 33.0 13.0 - 60.0 IU/L 02/16/2024 1:10 PM CDT [facility] Blood BLOOD SPECIMEN / Unknown Venipuncture / Unknown 02/16/2024 9:14 AM CDT 02/16/2024 9:15 AM CDT Fiona BOSCH CHEMISTRY Performing Organization Address City/[facility]/ZIP Co de Phone Number [facility] [address] [place] [address] * COMP METABOLIC PANEL (02/16/2024 9:14 AM CDT) SODIUM 142 136 - 145 mmol/L 02/16/2024 1:10 PM CDT [facility] POTASSIUM 4.2 3.5 - 5.1 mmol/L 02/16/2024 1:10 PM [facility] CHLORIDE 101 98 - 107 mmol/L 02/16/2024 1:10 PM [facility] CO2,TOTAL 28 22 - 29 mmol/L 02/16/2024 1:10 PM [facility] ANION GAP 13 5 - 18 02/16/2024 1:10 PM [facility] GLUCOSE 90 70 - 99 mg/dL 02/16/2024 1:10 PM [facility] CALCIUM 10.0 8.6 - 10.0 mg/dL 02/16/2024 1:10 PM [facility] BUN 8 6 - 20 mg/dL 02/16/2024 1:10 PM [facility] CREATININE 0.70 0.50 - 0.90 mg/dL 02/16/2024 1:10 PM [facility] BUN/CREAT RATIO 11 10 - 20 1:10 PM [facility] eGFR >90 >90 mL/min/1.7 3m2 02/16/2024 1:10 PM [facility] Comment:As of 2021, eG FR is calculated by the CKD-EPI creatinine equation without race adjustment. ??eGFR can be influenced by muscle mass, exercise, and diet. ??The reported eGFR is an estimation only and is only applicable if the renal function is stable. ALBUMIN 4.7 4.0 - 4.9 g/dL 02/16/2024 1:10 PM [facility] PROTEIN,TOTAL 7.7 6.0 - 8.0 g/dL 02/16/2024 1:10 PM [facility] BILIRUBIN,TOTAL 0.8 0.0 - 1.2 mg/dL 02/16/2024 1:10 PM [facility] ALK PHOSPHATASE 71 35 - 104 IU/L 02/16/2024 1:10 PM [facility] ALT (SGPT) 17 10 - 35 IU/L 02/16/2024 1:10 PM [facility] AST (SGOT) 27 10 - 35 IU/L 02/16/2024 1:10 PM CDT [facility] Blood BLOOD SPECIMEN / Unknown Venipuncture / Unknown 02/16/2024 9:14 AM CDT 02/16/2024 9:15 AM CDT Fiona Gama Sagar BOSCH CHEMISTRY [facility] [address] [place] [address] * COLONOSCOPY (12/02/2023 7:51 AM CDT) 12/02/2023 [...] adequate candidate for conscious sedation. The PCF-H190L [id number] was passed through the anus and advanced [...] 7:51 AM Procedure Code(s): --- Professional --- 24733, Colonoscopy, flexible; diagnostic, including collection of specimen(s) bybrushing or washing, when performed (separateprocedure) Diagnosis Code(s): --- Professional --- Z12.11, Encounter for screening formalignant neoplasm of colon K57.30, Diverticulosis of large intestine without perforation or abscess withoutbleeding CPT copyright 2022 [employer]. All rights reserved. The codes documented in this report are preliminary and upon medical insurance coder reviewmay be revised to meet current compliance requirements. Scope In: 8:40:26 AM Scope Withdrawal Time 0 hours 7 minutes 18 seconds Scope Out: 9:00:38 AM Sky Herrera MD PROCEDURE ORD * XR MAMMO YE BILAT SCREEN (07/29/2023 4:05 PM WOOL HAT HYDRAULICKER) Anatomical Region Laterality Modality BREASTS, Breast Left, Breast Right Bilateral Mammography Impressions 08/01/2023 2:22 PM WOOL HAT HYDRAULICKER ??There is no radiographic evidence for malignancy. ??Recommend annual mammograms. MAMMOGRAM ASSESSMENT: ??ACR 1 Negative PATIENTS: You will also receive a letter with your examination results in an easy to read format. ??If you have questions about your results, please contact your referring provider. Narrative 08/01/2023 2:22 PM WOOL HAT HYDRAULICKER For Patients: As a result of the Century Cures Act, medical imaging exams and procedure reports are released immediately into your electronic medical record. You may view this report before your referring provider. If you have questions, please contact your health care provider. XR MAMMO YE BILAT SCREEN [[id number]] CLINICAL HISTORY: ??This is an asymptomatic 57 y.o. patient. INDICATION FOR EXAM: Mammogram Screening. TECHNIQUE: CC & MLO views were obtained. ??This study was evaluated with the assistance of Computer-Aided Detection. Breast Tomosynthesis was used in interpretation. COMPARISON FILM: Yes 03/02/22 [employer] 02/13/21 [employer] FINDINGS: ??The breasts are heterogeneously dense, which may obscure small masses. There are no dominant masses, suspicious micro calcifications or areas of architectural distortion. Areli BOSCH MAMMO * (ABNORMAL) LIPID PANEL W REFLEX MEASURED LDL (01/10/2017 4:02 PM CDT) CHOLESTEROL,TOTAL 187 100 - 199 mg/dL 01/10/2017 8:38 PM CDT [facility] TRIGLYCERIDES 170(H) <150 mg/dL 01/10/2017 8:38 PM CDT [facility] HDL CHOLESTEROL 47 >40 mg/dL 7 8:38 PM CDT [facility] NON-HDL CHOLESTEROL 140 <145 mg/dl 01/10/2017 8:38 PM CDT [facility] CHOL/HDL RATIO 3.98 <4.50 01/10/2017 8:38 PM CDT [facility] LDL CHOLESTEROL 106 <=130 mg/dL 01/10/2017 8:38 PM CDT [facility] PATIENT STATUS FASTING 01/10/2017 8:38 PM CDT [facility] Blood BLOOD SPECIMEN / Unknown Venipuncture / Unknown 01/10/2017 4:02 PM CDT 01/10/2017 4:02 PM CDT Areli BOSCH CHEMISTRY [facility] [address] [place] [address], [facility] [address] [place] [address], * JAVA DEVELOPER CONSULTANT THIN PREP PAP SCREEN IMAGED (01/10/2017 3:58 PM CDT) Case Report Gynecologic Cytology Report ? Case: [id number] ? Authorizing Provider: ??Areli Villagomez PA Collected: ? 01/10/2017 1558 ? Ordering Location: ? [facility] ?? Received: ?01/10/2017 1558 ? Clinic ? First Screen: ?Antionette Hernández ? Specimen: ?JAVA DEVELOPER CONSULTANT ThinPrep Vial Screening, Cervical ? 01/17/2017 11:48 AM CDT [facility] INTERPRETATION/ RESULT NEGATIVE FOR INTRAEPITHELIAL LESION OR MALIGNANCY (NIL) (none) 01/17/2017 11:48 AM CDT [facility] IMEN ADEQUACY Satisfactory for evaluation Endocervical component present 01/17/2017 11:48 AM CDT [facility] HPV REQUEST HPV if ASCUS 01/17/2017 11:48 AM CDT [facility] Date of LMP 12/15/2016 01/17/2017 11:48 AM CDT [facility] Last Pap Date 08/20/2013 01/17/2017 11:48 AM CDT [facility] Last Pap Result NIL 7 11:48 AM CDT [facility] Abnormal Pap or [place] Bx in last 5 years No 01/17/2017 11:48 AM CDT [facility] Menstrual Status Regular Periods 01/17/2017 11:48 AM CDT [facility] [place] Bx Done Today No 01/17/2017 11:48 AM CDT [facility] Additional Information None given 01/17/2017 11:48 AM CDT [facility] Automated Review Successful 01/17/2017 11:48 AM CDT [facility] Comment:Specimen processed s uccessfully by automated guard manager device, ThinPrep Imaging System, [employer] Note The pap test is a screening technique, not a diagnostic procedure. ??It is used primarily to screen for squamous cancers and precursor lesions. ??Published studies have shown that it is subject to both false negative and false positive results. ??The pap test should not be used as the sole means to diagnose or exclude pre-malignant and malignant lesions. Interpreted at [facility] ([facility], [facility], [facility], [facility], [facility], [facility], [facility]) 01/17/2017 11:48 AM CDT [facility] Other (Cervical) 01/10/2017 3:58 PM CDT 01/10/2017 3:58 PM CDT Areli BOSCH PATHOLOGY/CYTOL OGY [facility] [address] [place] [address], * ANTI HCV (04/13/2011 12:49 PM CDT) ANTI HCV Non-reacti ve [facility] Blood specimen (specimen) BLOOD SPECIMEN / Unknown 04/13/2011 12:49 PM CDT 04/13/2011 12:39 PM CDT Sabrina BOSCH SEND OUTS [facility] [place]NAL ZIP [address] [place] [address] * ANTI HIV 1/2 (04/13/2011 12:49 PM CDT) ANTI HIV 1/2 Non-reacti ve [facility] Blood specimen (specimen) BLOOD SPECIMEN / Unknown 04/13/2011 12:49 PM CDT 04/13/2011 12:39 PM CDT Sabrina BOSCH SEND OUTS [facility] INTERNAL ZIP [address] [address] from Last 3 Months or Most Recently Relevant to Health Maintenance Advance Directives * Full Code (Latest Code Status on File) Date Activated Date Inactivated Comments 03/19/2015 6:48 AM 03/19/2015 3:58 PM Care Teams Assembly Press Operator Relationship Specialty Start Date End Date Areli Villagomez PA [address] [place] [address] PCP - General Family Practice 08/03/13 Yael Nazario MD [address] [place] [address] [facility] [address] [place] [address] Rheumatology Rheumatology 06/24/14 Giovanna Rodriguez, RN, BSN [address] [place] [address] Academic Affairs Dean Registered Nurse 03/05/[address] [place] [address] Garde Manager 09/27/23
--- OUTSIDE RECORDS SUMMARY | 2024-04-09 21:05 | XMS_ITS | Referral Summary ---
Author Organization [place] Address [address] [place] [address] Care Team Providers Care Silk Washing Machine Operator Name Role Phone Unavailable Primary Care Provider [...] Not on file [address] [place] [address]
--- OUTSIDE RECORDS SUMMARY | 2024-04-09 21:05 | XMS_ITS | Clinical Summary ---
Author Organization [place] Address [address] [place] [address] Care Team Providers Care Glassware Finisher Name Role Phone Unavailable Primary Care Provider [...] Not on file [address] [place] [address] [id number]
[2024-04-09] MEDS: ERTAPENEM 1 GM inj IVPB (21:23)
[2024-04-09] MEDS: BUPIVACAINE 0.25% 30 ML INJECTION (21:45)
--- NOTE | 2024-04-09 23:37 | P.ANES_ITS ---
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
[2024-04-09] MEDS: LACTATED RINGERS 1000 ML 1,000 ML 35 ML IV (23:43)
[2024-04-09] MEDS: POTASSIUM CHLORIDE 10 MEQ/100 ML PIGGYBACK 100 MEQ IVPB (23:57)
[2024-04-10] VITALS (12 sets, daily range): BP systolic 104–148; BP diastolic 64–93; PULSE 53–70; RESP 16–18; TEMP 36.6–36.8; O2SAT 90–98
[2024-04-10] MEDS: LACTATED RINGERS 1000 ML 1,000 ML 35 ML IV (00:13)
[2024-04-10] MEDS: POTASSIUM CHLORIDE 10 MEQ/100 ML PIGGYBACK 100 MEQ IVPB (01:15)
[2024-04-10] MEDS: HYDROmorphone 0.5 mg/0.5 ml inj IVP (01:51)
[2024-04-10] MEDS: HYDROCODONE-ACETAMIN 5-325 MG 1 TAB PO ×2 (02:37→09:17)
--- NOTE | 2024-04-10 05:57 | PC.NURSE ---
End of shift [id number]: Admitted to floor at 2335, patient drowsy but able to answer questions. Pain to abdomen reported, well managed with current PRN medications and ice pack to site. Dressing to umbilicus clean, dry and intact, 3 lap sites covered with steri strips. Tolerating clear liquids, denies nausea or vomiting. Bowel sounds active in all quadrants, abdominal tenderness to palpation continues. Up and ambulating with minimal assist.
[2024-04-10 06:28] LABS: Chloride* 103 mmol/L (96-114); Sodium* 137 mmol/L (135-149)
[2024-04-10 06:29] LABS: Potassium* 4.3 mmol/L (3.6-5.1)
[2024-04-10 06:31] LABS: Anion Gap 7 mEq/L (7-15); Carbon Dioxide* 27 mmol/L (20-32); Creatinine* 0.6 mg/dL (0.5-1.5); Estimated Glomerular Filt Rate 104 ml/min
[2024-04-10 06:32] LABS: Blood Urea Nitrogen* 11 mg/dL (7-30); Glucose* 133 mg/dL (60-115)
--- NOTE | 2024-04-10 09:10 | PM.DS1 ---
DS: Providers Provider Date Seen: 04/10/24 Date of admission: 04/10/2024 Primary care physician: Areli Villagomez PA-C Admitting Clinician: Estee Shea MD, FACS Attending Physician on discharge: Estee Shea MD Date of Discharge: 04/10/24 DS: Diagnosis Discharge Diagnosis (1) Incarcerated hernia: Status: Acute Problem details: Resolved after laparoscopic right inguinal hernia repair (2) Status post inguinal hernia repair: Status: Acute Problem details: Laparoscopic, right (3) Hypokalemia: Status: Acute Problem details: Resolved (4) Atrial fibrillation: Status: Acute Problem details: Patient has had 2 episodes in the past per her report. Not currently on medication. No instances during the hospitalization DS: Summary Time Spent with Patient Time attestation: Total time spent providing and/or coordinating discharge services: Exam Narrative: Exam Narrative: General: No acute distress Respiratory: Breathing nonlabored on room CV: Regular rate Abdomen: incisions clean, dry and intact without erythema. Const: Vital Signs, click to edit/add: Vital Signs - 24 hr 04/09/24 17:33 04/09/24 18:32 04/09/24 19:02 Temperature 97.6 F Pulse Rate 69 58 L Pulse Rate [Right Pulse Oximeter] 67 Respiratory Rate 18 18 18 Blood Pressure 155/96 H 169/95 H Blood Pressure [Le ft Arm] Blood Pressure [Ri ght Upper Arm] 178/82 H Pulse Oximetry 94 100 100 Oxygen Delivery Me thod Room Air 04/09/24 22:55 04/09/24 23:00 04/09/24 23:05 Temperature 97.5 F L Pulse Rate 75 70 69 Pulse Rate [Right Pulse Oximeter] Respiratory Rate 12 14 14 Blood Pressure 142/83 H 145/84 H 144/81 H Blood Pressure [Le ft Arm] Blood Pressure [Ri ght Upper Arm] Pulse Oximetry 93 95 97 Oxygen Delivery Me thod Room Air Room Air Room Air 04/09/24 23:10 04/09/24 23:15 04/09/24 23:20 Temperature 98.3 F Pulse Rate 67 69 66 Pulse Rate [Right Pulse Oximeter] Respiratory Rate 14 16 16 Blood Pressure 144/81 H 138/82 140/85 H Blood Pressure [Le ft Arm] Blood Pressure [Ri ght Upper Arm] Pulse Oximetry 99 99 97 Oxygen Delivery Me thod Room Air Room Air Room Air 04/09/24 23:25 04/09/24 23:35 04/09/24 23:35 Temperature 98.0 F 97.8 F 97.8 F Pulse Rate 66 59 L 59 L Pulse Rate [Right Pulse Oximeter] Respiratory Rate 16 16 16 Blood Pressure 137/80 115/65 115/65 Blood Pressure [Le ft Arm] Blood Pressure [Ri ght Upper Arm] Pulse Oximetry 96 93 93 Oxygen Delivery Me thod Room Air Room Air Room Air 04/10/24 00:00 04/10/24 00:15 04/10/24 00:30 Temperature 97.8 F 98.1 F 98.1 F Pulse Rate 57 L 57 L 62 Pulse Rate [Right Pulse Oximeter] Respiratory Rate 16 16 16 Blood Pressure 106/64 104/69 148/93 H Blood Pressure [Le ft Arm] Blood Pressure [Ri ght Upper Arm] Pulse Oximetry 92 91 94 Oxygen Delivery Me thod Room Air Room Air Room Air 04/10/24 00:45 04/10/24 01:15 04/10/24 01:37 Temperature 97.8 F 97.8 F Pulse Rate 54 L 58 L 54 L Pulse Rate [Right Pulse Oximeter] Respiratory Rate 18 16 Blood Pressure 138/89 119/77 Blood Pressure [Le ft Arm] Blood Pressure [Ri ght Upper Arm] Pulse Oximetry 94 93 Oxygen Delivery Me thod Room Air Room Air 04/10/24 01:45 04/10/24 02:45 04/10/24 03:45 Temperature 97.8 F Pulse Rate 58 L 64 63 Pulse Rate [Right Pulse Oximeter] Respiratory Rate 16 18 16 Blood Pressure 119/74 118/76 117/74 Blood Pressure [Le ft Arm] Blood Pressure [Ri ght Upper Arm] Pulse Oximetry 91 96 90 Oxygen Delivery Me thod Room Air Room Air Room Air 04/10/24 05:45 04/10/24 08:32 04/10/24 08:32 Temperature Pulse Rate 53 L Pulse Rate [Right Pulse Oximeter] Respiratory Rate 16 16 Blood Pressure 120/70 Blood Pressure [Le ft Arm] Blood Pressure [Ri ght Upper Arm] Pulse Oximetry 94 98 98 Oxygen Delivery Me thod Room Air Room Air 04/10/24 08:32 04/10/24 08:34 Temperature 98.3 F Pulse Rate 55 L Pulse Rate [Right Pulse Oximeter] 70 Respiratory Rate 16 Blood Pressure Blood Pressure [Le ft Arm] 116/68 Blood Pressure [Ri ght Upper Arm] Pulse Oximetry 98 Oxygen Delivery Me thod Room Air DS: Data Data Completed and Pending Labs on day of discharge: Labs from last 24 hours 04/10/24 04/09/24 04/09/24 06:02 18:25 18:01 WBC 12.26 H RBC 4.45 Hgb 13.2 Hct 39.9 MCV 90 MCH 30 MCHC 33 RDW Coeff of Afshan 13.3 Plt Count 333 Neut % (Auto) 67.9 Lymph % (Auto) 23.7 [place] % (Auto) 7.1 Eos % (Auto) 0.7 Baso % (Auto) 0.5 Neut # (Auto) 8.30 H Lymph # (Auto) 2.90 [place] # (Auto) 0.90 Eos # (Auto) 0.10 Baso # (Auto) 0.10 Abs Immat Gran (auto) 0.00 Imm/Tot Granulo (auto) 0.1 Sodium 137 139 Potassium 4.3 3.0 L Chloride 103 104 Carbon Dioxide 27 22 Anion Gap 7 13 BUN 11 15 Creatinine 0.6 0.6 Estimated Creat Clear 103.10 103.10 Estimated GFR 104 104 Glucose 133 H 105 Calcium 9.0 10.1 Urine Color Yellow Urine Appearance Clear Urine pH 8.5 Ur Specific [place] 1.015 Urine Protein Negative Urine Glucose (UA) Negative Urine Ketones Negative Urine Blood Negative Urine Nitrite Negative Urine Bilirubin Negative Urine Urobilinogen 0.2 Ur Leukocyte Esterase Negative Urine RBC 0-2 Urine WBC 0-2 Ur Squamous Epith Cells None Urine Bacteria None Discharge Plan Discharge Disposition: Home w/ Parent or Adult Discharging Surgeon: Estee Shea Follow-Up Appointment: 3 weeks, Ti Prescriptions: New hydrocodone-acetaminophen 5-325 mg Tablet 1 - 2 tab PO Q6H PRN (Reason: Pain) Qty: 20 0RF Continued cholecalciferol (vitamin D3) 25 mcg (1,000 unit) tablet 50 mcg PO DAILY multivitamin Tablet 1 tab PO QAM celecoxib 200 mg capsule PO levonorgestrel-ethinyl estrad [Falmina (28)] 0.1-20 mg-mcg tablet 1 tab PO QDAY Qty: 84 3RF Activity Level: No strenuous activity Activity Detail: No lifting more than 20 pounds for 4 weeks. Discharge Diet: Regular Patient Instructions: Hydrocodone/Acetaminophen (By mouth), Inguinal Hernia (DC) Additional Instructions: Wound care: Your sutures are under the skin and will dissolve over time. Remove outer dressing by belly button tomorrow. Leave steri strips (white bandages) over incisions until they fall off (or remove after 7 days). OK to shower tomorrow but avoid bathing, soaking or swimming for 2 weeks. Pat the incisions dry. No need to wash or scrub the area. Apply ice to the area as needed for swelling. It is also OK to use a heating pad if this provides more comfort to you. Pain control: You were prescribed a pain medication. This medication contains acetaminophen (Tylenol). If you are taking your prescribed pain pills 4 times daily, do not take additional acetaminophen. As your pain improves, you can try taking acetaminophen instead of the prescribed pain pill. Take an [id number] stool softener while you are taking prescribed pain medications to help alleviate constipation. I recommend Senna and/or Colace. Take as directed on package. If you have not had a bowel movement in 3 days, try taking Miralax as directed on the package. All of these are available over the counter. Follow-up Follow up with Dr. Shea in 3 weeks Please call if you are experiencing severe pain, nausea, vomiting, difficulty urinating, fever or have not had bowel movement in 4 days after surgery. Follow-up: Estee Shea MD [Staff Physician] - 05/01/24 1:15 pm ([facility] for follow-up.) Areli Villagomez PA-C [Primary Care Provider] - Discharge Orders: Discharge Order (Routine); Ordered 04/10/24 Ordered By: Estee Shea
--- NOTE | 2024-04-10 13:07 | PC.NURSE ---
Discharged: Pt pleasant, alert, oriented and vitally stable. IV removed tip intact. Discharge instructions given to pt and spouse, topics involved follow up, medication, and wound care. Discharged home with spouse at 1134.
== END 2024-04-10 11:34 | disposition home or self-care (01) ==
LOC: ED 20:18 → OR 21:03 → MEDSURG 23:37
PROVIDERS: Emergency Provider Emergency Medicine Emergency Medical Services; PCP Physician Assistant Medical; Visit Provider Surgery
PROC: (CPT 49320; principal; 2024-04-09 21:00)
DX: K40.30 Unilateral inguinal hernia, with obstruction, without gangrene, not specified as recurrent (principal); K42.9 Umbilical hernia without obstruction or gangrene; R10.31 Right lower quadrant pain; I48.91 Unspecified atrial fibrillation; E87.6 Hypokalemia
CPT/HCPCS: 49591; 49650; 00830; 36415; 74176; 80048; 81001; 85025; 99140; 99284; 99285; A9270; C1781; J0330; J0665; J1100; J1171; J1335; J1885; J2405; J2704; J2710; J3010; J3480; J7120

== ENCOUNTER 2024-04-16 18:14 | Emergency (ER) | payer BC, SELFPAY ==
--- OUTSIDE RECORDS SUMMARY | 2024-04-16 18:17 | XMS_ITS | Clinical Summary ---
Author Organization [facility] Address [address] [place] [id number] Care Team Providers Care Golf Cart Attendant Name Role Phone Unavailable Primary Care Provider [...] Not on file [address] [place] [id number]
--- OUTSIDE RECORDS SUMMARY | 2024-04-16 18:17 | XMS_ITS | Clinical Summary ---
Author Organization [employer] [facility] Address [place], [place] [address] Care Team Providers Care Food Technician Name Role Phone Arlei Villagomez Primary Care Provider Yael Nazario MD Unavailable Giovanna Rodriguez RN, BSN Unavailable [phone] Choco Weiss Unavailable Allergies Active Allergy Reactions [...] 05/15/2008 Overview (01/14/2022): Overview: 05/15/2008 LSIL 06/14/2008 Sullivan: MARY 1 04/13/2011 ASCUS/HPV Negative Plan: Pap/HPV [...] 05/15/2008 02/18/2024 Overview (01/24/2017): 05/15/2008 LSIL 06/14/2008 Sullivan: MARY 1 04/13/2011 ASCUS/HPV Negative Plan: Pap/HPV 01/2020 Depressive disorder, not elsewhere classified 10/20/19 07 05/15/2008 Encounters Date Type Department Care Team Description 04/09/2024 8:00 AM CDT Office Visit [facility] [address] [place] [address] Estee Shea MD 04/09/2024 Orders Only [facility] Scanner 1 scan: (1-Ord) ARCHER, LAPAROSCOPIC REPAIR: RT INGUINAL HERNIA W/ MESH +, 04/09/2024 04/09/2024 Orders Only [facility] Scanner 1 scan: (1-Ord) [facility], CT ABDOMEN PELVIS W/O CON, 04/09/2024 03/20/2024 Medical Messaging [facility] [address] [place] [address] Areli Villagomez PA Kidney stones 02/16/2024 11:30 AM CDT Ancillary Procedure [facility] [address] [place] [address] 02/16/2024 8:30 AM CDT Office Visit [facility] [address] [place] [address] Fiona Keith PA Gi Problem (Thinks she [...] Name Administration Dates Next Due COVID-19 vaccine (Istpika NTech 30mcg/0.3mL) 12YO+ BRADY-SUCROSE PF, MDV 11/20/2021 COVID-19 vaccine (Istpika NTech 30mcg/0.3mL) PF, MDV 11/20/2021,09/23/2020,09/02/2020 Influenza Virus, [...] Body Mass Index 28.4 07/18/2023 3:06 PM VOCATIONAL REHABILITATION SUPERVISOR Plan of Treatment Upcoming Encounters Date Type Department Care Team (Late st Contact Info) Description 05/01/2024 1:15 PM CDT Office Visit [facility] [address] [place] [address] Estee Shea MD [address] [place] [address] 05/02/2024 11:50 AM CDT Office Visit [facility] [address] [place] [address] Areli Villagomez PA [address] [place] [address] Health Maintenance Due Date Last Done Comments Zoster (shingles) series for age 50+ (1 of 2) 2015 Lipids for age 45-75 01/10/2022 01/10/2017, 09/24/2013, 05/22/2008 Pap test for age 21-65 06/09/2023 0 (Completed outside of [facility]), 01/10/2017, 01/10/2017, Additional history exists Depression screening [...] Procedure Name Priority Date/Time Associated Diagnosis Comments SCAN-CT INTERPRETATION 12:00 AM CDT SCAN-OPERATIVE/PROCEDU RE REPORT 04/09/2024 12:[address] ABDOMEN PELVIS WO STAT 02/16/2024 10:01 AM CDT Abdominal pain, generalized URINALYSIS MICROSCOPIC STAT 9:17 AM CDT Abdominal pain, generalized UA [...] YE BILAT SCREEN Routine 07/29/2023 4:05 PM VOCATIONAL REHABILITATION SUPERVISOR Visit for screening mammogram LIPID PANEL W REFLEX MEASURED LDL Routine 01/10/2017 4:02 PM CDT Screening cholesterol level FOLDER INSPECTOR THIN PREP PAP SCREEN IMAGED Routine 01/10/2017 3:58 PM CDT Screening for cervical cancer ANTI HIV 1/2 Routine 04/13/2011 12:49 PM CDT Screen for STD (sexually transmitted disease) ANTI HCV Routine 04/13/2011 12:49 PM CDT Screen for STD (sexually transmitted disease) from Last 3 Months or Most Recently Relevant to Health Maintenance Results * SCAN-OPERATIVE/PROCEDURE REPORT (04/09/2024 12:00 AM CDT) Scanner OTHER * SCAN-CT INTERPRETATION (04/09/2024 12:00 AM CDT) Anatomical Region Laterality Modality Other Scanner OTHER * CT ABDOMEN PELVIS WO (02/16/2024 10:01 [...] For Patients: ??As a result of the Cures Act, medical imaging exams and procedure [...] No focal worrisome bone lesions. Procedure Note Suandra Lopez MD - 02/16/2024 For Patients: As [...] None Seen /HPF 02/16/2024 9:25 AM CDT [facility] WBC 0-2 0-2, 3-5, None Seen /HPF 02/16/2024 9:25 AM CDT [facility] BACTERIA Few None Seen, Rare, Few Bacteria/H PF 02/16/2024 9:25 AM CDT [facility] EPITHELIAL CELLS Few None Seen, Few Epi/HPF 02/16/2024 9:25 AM CDT [facility] Urine URINE SPECIMEN / Unknown Non-Blood / Unknown 02/16/2024 9:17 AM CDT 02/16/2024 9:17 AM CDT Fiona BOSCH URINE [facility] [address] [place] [address], * (ABNORMAL) UA W/ SEDIMENT EXAM REFLEXED PER CRITERIA (02/16/2024 9:17 AM CDT) COLOR Yellow Yellow Color 02/16/2024 9:26 AM CDT [facility] CLARITY Clear Clear Clarity 02/16/2024 9:26 AM CDT [facility] SPECIFIC GRAVITY,URINE 1.020 1.010, 1.015, 1.020, 1.025 02/16/2024 9:26 AM CDT [facility] PH,URINE 7.0 6.0, 7.0, 8.0, 5.5, 6.5, 7.5, 8.5 02/16/2024 9:26 AM CDT [facility] UROBILINOGEN,QU ALITATIVE Increased(A) Normal EU/dl 02/16/2024 9:26 AM CDT [facility] PROTEIN, URINE Negative Negative mg/dL 02/16/2024 9:26 AM CDT [facility] GLUCOSE, URINE Negative Negative mg/dL 02/16/2024 9:26 AM CDT [facility] KETONES,URINE 15(A) Negative mg/dL 02/16/2024 9:26 AM CDT [facility] BILIRUBIN,URINE Abnormal(A) Negative 02/16/20 9:26 AM CDT [facility] Comment:A variety of metabol ites and/or medications may result in a positive bilirubin result. Clinical correlation is recommended. OCCULT BLOOD,URINE Trace(A) Negative 02/16/2024 9:26 AM CDT [facility] NITRITE Negative Negative 02/16/2024 9:26 AM CDT [facility] LEUKOCYTE ESTERASE Negative Negative 02/16/2024 9:26 AM CDT [facility] Urine URINE SPECIMEN / Unknown Non-Blood / Unknown 02/16/2024 9:17 AM CDT 02/16/2024 9:17 AM CDT Fiona BOSCH URINE [facility] [address] [place] [address], * CBC WITH AUTO DIFFERENTIAL (02/16/2024 9:14 AM CDT) WHITE BLOOD COUNT 6.5 4.5 - 11.0 thou/cu mm 02/16/2024 9:23 AM CDT [facility] RED BLOOD COUNT 4.24 4.00 - 5.20 mil/cu mm 02/16/2024 9:23 AM CDT [facility] HEMOGLOBIN 12.8 12.0 - 16.0 g/dL 02/16/2024 9:23 AM CDT [facility] HEMATOCRIT 39.5 33.0 - 51.0 % 02/16/2024 9:23 AM CDT [facility] MCV 93 80 - 100 fL 02/16/2024 9:23 AM CDT [facility] MCH 30.2 26.0 - 34.0 pg 02/16/2024 9:23 AM CDT [facility] MCHC 32.4 32.0 - 36.0 g/dL 02/16/2024 9:23 AM CDT [facility] RDW 13.6 11.5 - 15.5 % 02/16/2024 9:23 AM CDT [facility] PLATELET COUNT 397 140 - 440 thou/cu mm 02/16/2024 9:23 AM CDT [facility] MPV 9.9 6.5 - 11.0 fL 02/16/2024 9:23 AM CDT [facility] % NEUT 61.8 % 02/16/2024 9:23 AM CDT [facility] % LYMPH 25.0 % 02/16/2024 9:23 AM CDT [facility] % MONO 10.1 % 02/16/2024 9:23 AM CDT [facility] % EOS 2.8 % 02/16/2024 9:23 AM CDT [facility] % BASO 0.3 % 02/16/2024 9:23 AM CDT [facility] ABSOLUTE NEUTROPHILS 4.0 1.7 - 7.0 thou/cu mm 02/16/2024 9:23 AM CDT [facility] ABSOLUTE LYMPHOCYTES 1.6 0.9 - 2.9 thou/cu mm 02/16/2024 9:23 AM CDT [facility] ABSOLUTE MONOCYTES 0.7 <0.9 thou/cu mm 02/16/2024 9:23 AM CDT [facility] ABSOLUTE EOSINOPHILS 0.2 <0.5 thou/cu mm 02/16/2024 9:23 AM CDT [facility] ABSOLUTE BASOPHILS 0.0 <0.3 thou/cu mm 02/16/2024 9:23 AM CDT [facility] Blood BLOOD SPECIMEN / Unknown Venipuncture / Unknown 02/16/2024 9:14 AM CDT 02/16/2024 9:15 AM CDT Fiona BOSCH HEMATOLOGY [facility] [address] [place] [address], * (ABNORMAL) C-REACTIVE PROTEIN (02/16/2024 9:14 AM CDT) C-REACTIVE PROTEIN 10.0(H) <0.5 mg/dL 02/16/2024 1:10 PM T [facility] Blood BLOOD SPECIMEN / Unknown Venipuncture / Unknown 02/16/2024 9:14 AM CDT 02/16/2024 9:15 AM CDT Fiona BOSCH CHEMISTRY Performing Organization Address City/[facility]/ZIP Co de Phone Number [facility] [address] [place] [address] * LIPASE (02/16/2024 9:14 AM CDT) Pathologist [facility] LIPASE 33.0 13.0 - 60.0 IU/L 02/16/2024 1:10 PM [facility] Blood BLOOD SPECIMEN / Unknown Venipuncture / Unknown 02/16/2024 9:14 AM CDT 02/16/2024 9:15 AM CDT Fiona BOSCH CHEMISTRY [facility] [address] [place] [address] * COMP METABOLIC PANEL (02/16/2024 9:14 AM CDT) Pathologist [facility] SODIUM 142 136 - 145 mmol/L 02/16/2024 1:10 PM [facility] POTASSIUM 4.2 3.5 - 5.1 mmol/L 02/16/2024 1:10 PM [facility] CHLORIDE 101 98 - 107 mmol/L 02/16/2024 1:10 PM [facility] CO2,TOTAL 28 22 - 29 mmol/L 02/16/2024 1:10 PM [facility] ANION GAP 13 5 - 18 02/16/2024 1:10 PM [facility] GLUCOSE 90 70 - 99 mg/dL 02/16/2024 1:10 PM [facility] CALCIUM 10.0 8.6 - 10.0 mg/dL 02/16/2024 1:10 PM [facility] BUN 8 6 - 20 mg/dL 02/16/2024 1:10 PM [facility] CREATININE 0.70 0.50 - 0.90 mg/dL 02/16/2024 1:10 PM [facility] BUN/CREAT RATIO 11 10 - 20 4 1:10 PM [facility] eGFR >90 >90 mL/min/1.7 3m2 02/16/2024 1:10 PM [facility] Comment:As of 2021, eG FR is calculated by the CKD-EPI creatinine equation without race adjustment. ??eGFR can be influenced by muscle mass, exercise, and diet. ??The reported eGFR is an estimation only and is only applicable if the renal function is stable. ALBUMIN 4.7 4.0 - 4.9 g/dL 02/16/2024 1:10 PM [facility] PROTEIN,TOTAL 7.7 6.0 - 8.0 g/dL 02/16/2024 1:10 PM [facility] BILIRUBIN,TOTAL 0.8 0.0 - 1.2 mg/dL 02/16/2024 1:10 PM [facility] ALK PHOSPHATASE 71 35 - 104 IU/L 02/16/2024 1:10 PM [facility] ALT (SGPT) 17 10 - 35 IU/L 02/16/2024 1:10 PM [facility] AST (SGOT) 27 10 - 35 IU/L 02/16/2024 1:10 PM [facility] Blood BLOOD SPECIMEN / Unknown Venipuncture / Unknown 02/16/2024 9:14 AM CDT 02/16/2024 9:15 AM CDT Fiona BOSCH CHEMISTRY [facility] [address] [place] [address] * COLONOSCOPY (12/02/2023 7:51 AM CDT) 12/02/2023 7:51 AM CDT Narrative Transcriptions Sky Herrera MD - 12/02/2023 9:13 AM CDT Patient Name: Fiona Blankenship Procedure Date: 12/02/2023 Gender: Female Date of : 1965 Admit Type: Outpatient Procedure: Colonoscopy Proceduralist: Sky Herrera MD , Rayna Houston, RN(Nurse), Monica Hernandez (Nurse) Referring MD: Areli Villagomez Indications/Pre-Op Diagnosis: Screening for colorectal malignant neoplasm, Last colonoscopy: April 2011 Medications: Fentanyl 200 micrograms IV, Midazolam 4 mgIV Procedure Description: The patient had risks, benefits and alternatives explained to andgave informed consent. The patient had a stable cardiopulmonary status and judged an adequate candidate for conscious sedation. The PCF-H190L [id number] was passed through the anus and advanced [...] 7:51 AM Procedure Code(s): --- Professional --- 03044, Colonoscopy, flexible; diagnostic, including collection of specimen(s) bybrushing or washing, when performed (separateprocedure) Diagnosis Code(s): --- Professional --- Z12.11, Encounter for screening formalignant neoplasm of colon K57.30, Diverticulosis of large intestine without perforation or abscess withoutbleeding CPT copyright 2022 [employer]. All rights reserved. The codes documented in this report are preliminary and upon superintendent pier reviewmay be revised to meet current compliance requirements. Scope In: 8:40:26 AM Scope Withdrawal Time 0 hours 7 minutes 18 seconds Scope Out: 9:00:38 AM Sky Herrera MD PROCEDURE ORD * XR MAMMO YE BILAT SCREEN (07/29/2023 4:05 PM VOCATIONAL REHABILITATION SUPERVISOR) Anatomical Region Laterality Modality BREASTS, Breast Left, Breast Right Bilateral Mammography Impressions 08/01/2023 2:22 PM VOCATIONAL REHABILITATION SUPERVISOR ??There is no radiographic evidence for malignancy. ??Recommend annual mammograms. MAMMOGRAM ASSESSMENT: ??ACR 1 Negative PATIENTS: You will also receive a letter with your examination results in an easy to read format. ??If you have questions about your results, please contact your referring provider. Narrative 08/01/2023 2:22 PM VOCATIONAL REHABILITATION SUPERVISOR For Patients: As a result of the Century Cures Act, medical imaging exams and procedure reports are released immediately into your electronic medical record. You may view this report before your referring provider. If you have questions, please contact your health care provider. XR MAMMO YE BILAT SCREEN [[id number]] CLINICAL HISTORY: ??This is an asymptomatic 57 y.o. patient. INDICATION FOR EXAM: Mammogram Screening. TECHNIQUE: CC & MLO views were obtained. ??This study was evaluated with the assistance of Computer-Aided Detection. Breast Tomosynthesis was used in interpretation. COMPARISON FILM: Yes 03/02/22 [facility] 02/13/21 [facility] FINDINGS: ??The breasts are heterogeneously dense, which may obscure small masses. There are no dominant masses, suspicious micro calcifications or areas of architectural distortion. Areli BOSCH MAMMO * (ABNORMAL) LIPID PANEL W REFLEX MEASURED LDL (01/10/2017 4:02 PM CDT) CHOLESTEROL,TOTAL 187 100 - 199 mg/dL 01/10/2017 8:38 PM CDT [facility] TRIGLYCERIDES 170(H) <150 mg/dL 01/10/2017 8:38 PM CDT [facility] HDL CHOLESTEROL 47 >40 mg/dL 7 8:38 PM CDT [facility] NON-HDL CHOLESTEROL 140 <145 mg/dl 01/10/2017 8:38 PM CDT [facility] CHOL/HDL RATIO 3.98 <4.50 01/10/2017 8:38 PM CDT [facility] LDL CHOLESTEROL 106 <=130 mg/dL 01/10/2017 8:38 PM T [facility] PATIENT STATUS FASTING 01/10/2017 8:38 PM CDT [facility] Blood BLOOD SPECIMEN / Unknown Venipuncture / Unknown 01/10/2017 4:02 PM CDT 01/10/2017 4:02 PM CDT Areli BOSCH CHEMISTRY [facility] [address] [place] [address], [facility] [address] [place] [address], * FOLDER INSPECTOR THIN PREP PAP SCREEN IMAGED (01/10/2017 3:58 PM CDT) Case Report Gynecologic Cytology Report ? Case: [id number] ? Authorizing Provider: ??Areil Villagomez PA Collected: ? 01/10/2017 1558 ? Ordering Location: ? [facility] ?? Received: ?01/10/2017 1558 ? Clinic ? First Screen: ?Antionette Hernández ? Specimen: ?FOLDER INSPECTOR ThinPrep Vial Screening, Cervical ? 01/17/2017 11:48 AM CDT [facility] INTERPRETATION/ RESULT NEGATIVE FOR INTRAEPITHELIAL LESION OR MALIGNANCY (NIL) (none) 01/17/2017 11:48 AM CDT [facility] IMEN ADEQUACY Satisfactory for evaluation Endocervical component present 01/17/2017 11:48 AM CDT [facility] HPV REQUEST HPV if ASCUS 01/17/2017 11:48 AM CDT [facility] Date of LMP 12/15/2016 01/17/2017 11:48 AM CDT [facility] Last Pap Date 08/20/2013 01/17/2017 11:48 AM CDT [facility] Last Pap Result NIL 7 11:48 AM CDT [facility] Abnormal Pap or Sullivan Bx in last 5 years No 01/17/2017 11:48 AM CDT [facility] Menstrual Status Regular Periods 01/17/2017 11:48 AM CDT [facility] Sullivan Bx Done Today No 01/17/2017 11:48 AM CDT [facility] Additional Information None given 01/17/2017 11:48 AM CDT [facility] Automated Review Successful 01/17/2017 11:48 AM CDT [facility] Comment:Specimen processed s uccessfully by automated training designer device, ThinPrep Imaging System, [employer] Note The pap test is a screening technique, not a diagnostic procedure. ??It is used primarily to screen for squamous cancers and precursor lesions. ??Published studies have shown that it is subject to both false negative and false positive results. ??The pap test should not be used as the sole means to diagnose or exclude pre-malignant and malignant lesions. Interpreted at [facility] ([facility], [facility], [facility], [facility], [facility], [facility], [facility]) 01/17/2017 11:48 AM CDT [facility] Other (Cervical) 01/10/2017 3:58 PM CDT 01/10/2017 3:58 PM CDT Areli BOSCH PATHOLOGY/CYTOL OGY [facility] [address] [place] [address], * ANTI HCV (04/13/2011 12:49 PM CDT) ANTI HCV Non-reacti ve [facility] Blood specimen (specimen) BLOOD SPECIMEN / Unknown 04/13/2011 12:49 PM CDT 04/13/2011 12:39 PM CDT Sabrina BOSCH SEND OUTS [facility] [place] ZIP [address] [place] [id number] * ANTI HIV 1/2 (04/13/2011 12:49 PM CDT) ANTI HIV 1/2 Non-reacti ve [facility] Blood specimen (specimen) BLOOD SPECIMEN / Unknown 04/13/2011 12:49 PM CDT 04/13/2011 12:39 PM CDT Sabrina BOSCH SEND OUTS [facility] [place]NAL ZIP [address] [place] [address] from Last 3 Months or Most Recently Relevant to Health Maintenance Advance Directives * Full Code (Latest Code Status on File) Date Activated Date Inactivated Comments 03/19/2015 6:48 AM 03/19/2015 3:58 PM Care Teams Food Technician Relationship Specialty Start Date End Date Areli Villagomez PA [address] [facility] [place] [address] PCP - General Family Practice 08/03/13 Yael Nazario MD [address] [facility] [address] [place] [address] Rheumatology Rheumatology 06/24/14 Giovanna Rodriguez RN, BSN [address], [place] [address] Primary Special Educator Registered Nurse 03/05/[address] [facility] [place] [address] Hat Forming Machine Feeder 09/27/23
--- OUTSIDE RECORDS SUMMARY | 2024-04-16 18:17 | XMS_ITS | Referral Summary ---
Author Organization [facility] Address [address] [place] [address] Care Team Providers Care Director Of Food And Nutrition Name Role Phone Unavailable Primary Care Provider [...] Not on file [address] [place] [address]
[2024-04-16 18:18] VITALS: BP 130/87; PULSE 85; RESP 18; TEMP 37.7; O2SAT 100; BMI 25.4
[2024-04-16 19:43] LABS: Appearance Urine Clear (Clear); Bilirubin Urine Negative (Negative); Blood Urine Negative (Negative); Color Urine Yellow (Yellow); Glucose Urine Negative (Negative); Ketones Urine Negative (Negative); Leukocyte Esterase Urine Negative (Negative); Nitrite Urine Negative (Negative); Protein Urine Negative (Negative); Specific Gravity Urine 1.015 (1.000-1.030); Urobilinogen Urine 0.2 (0.2-1.0); pH Urine 8.5 (5.0-8.5)
--- NOTE | 2024-04-16 20:02 | CRLHL7_ITS ---
For Patients: As a result of the Century Cures Act, medical imaging exams and procedure reports are released immediately into your electronic medical record. You may view this report before your referring provider. If you have questions, please contact your health care provider. INDICATION: Postoperative hernia surgery pain. TECHNIQUE: CT abdomen and pelvis without contrast. COMPARISON: 04/09/2024. FINDINGS: Lower chest: Unremarkable. Liver: Normal in size and attenuation. No suspicious masses. Gallbladder and bile ducts: Cholecystectomy. Pancreas: Unremarkable. No mass or inflammation. Spleen: Normal in size. No masses. Adrenal glands: Normal in size. No nodules. Kidneys: Left renal posterior cyst with partial rim calcification is unchanged. Kidneys otherwise unremarkable. GI tract: Diffuse colonic diverticulosis. There is acute inflammation amongst diverticula in the sigmoid area. Small bowel is normal. Normal appendix. Vasculature: Abdominal aorta is normal in caliber. Lymph nodes: No lymphadenopathy. Peritoneum/Abdominal Wall: There are postoperative changes from an umbilical hernia repair and a right spigelian hernia repair. Small amount of scattered free air and air in the abdominal wall consistent with recent surgery. Minimal dependent free fluid in the pelvis is also expected. Pelvis: Pessary device present. Bones: Unremarkable for age. IMPRESSION: 1. Acute sigmoid diverticulitis without complication. 2. Expected postoperative changes from a recent hernia repair. No specific postoperative complication evident. Please note that all CT scans at this facility use dose modulation, iterative reconstruction, and/or weight-based dosing when appropriate to reduce radiation dose to as low as reasonably achievable. Dictated by Brian Floyd MD @ 04/16/2024 9:28:02 PM (Electronically Signed)
[2024-04-16 20:08] LABS: Lactate* 1.1 mmol/L (0.5-1.9)
--- OUTSIDE RECORDS SUMMARY | 2024-04-16 20:08 | XMS_ITS | Clinical Summary ---
Author Organization [employer] [facility] Address [place], [place] [address] Care Team Providers Care Land Manager Name Role Phone Areli Villagomez Primary Care Provider Yael Nazario MD Unavailable [phone] Giovanna Rodriguez RN, BSN Unavailable [phone] Choco Weiss Unavailable Allergies Active Allergy Reactions [...] 05/15/2008 Overview (01/14/2022): Overview: 05/15/2008 LSIL 06/14/2008 [place]: MARY 1 04/13/2011 ASCUS/HPV Negative Plan: Pap/HPV [...] 05/15/2008 02/18/2024 Overview (01/24/2017): 05/15/2008 LSIL 06/14/2008 [place]: MARY 1 04/13/2011 ASCUS/HPV Negative Plan: Pap/HPV 01/2020 Depressive disorder, not elsewhere classified 10/20/19 07 05/15/2008 Encounters Date Type Department Care Team Description 04/09/2024 8:00 AM CDT Office Visit [facility] [address] [place] [address] Estee Shea MD 04/09/2024 Orders Only [facility] Scanner 1 scan: (1-Ord) [place], LAPAROSCOPIC REPAIR: RT INGUINAL HERNIA W/ MESH +, 04/09/2024 04/09/2024 Orders Only [facility] Scanner 1 scan: (1-Ord) [facility], CT ABDOMEN PELVIS W/O CON, 04/09/2024 03/20/2024 Medical Messaging [facility] [address] [place] [address] Arlei Villagomez PA Kidney stones 02/16/2024 11:30 AM CDT Ancillary Procedure [facility] [address] [place] [address] 02/16/2024 8:30 AM CDT Office Visit [facility] [address] [place] [address] Fiona Keith PA Gi Problem (Thinks she [...] Name Administration Dates Next Due COVID-19 vaccine ([facility] 30mcg/0.3mL) 12YO+ BRADY-SUCROSE PF, MDV 11/20/2021 COVID-19 vaccine ([facility] 30mcg/0.3mL) PF, MDV 11/20/2021,09/23/2020,09/02/2020 Influenza Virus, [...] Body Mass Index 28.4 07/18/2023 3:06 PM HEEL SORTER Plan of Treatment Upcoming Encounters Date Type Department Care Team (Late st Contact Info) Description 05/01/2024 1:15 PM CDT Office Visit [facility] [address] [place] [address] Estee Shea MD [address] [place] [address] 05/02/2024 11:50 AM CDT Office Visit [facility] [address] [place] [address] Areli Villagomez PA [address] [place] [address] Health Maintenance Due Date Last Done Comments Zoster (shingles) series for age 50+ (1 of 2) 2015 Lipids for age 45-75 01/10/2022 01/10/2017, 09/24/2013, 05/22/2008 Pap test for age 21-65 06/09/2023 0 (Completed outside of [facility]), 01/10/2017, 01/10/2017, Additional history exists Depression screening [...] YE BILAT SCREEN Routine 07/29/2023 4:05 PM HEEL SORTER Visit for screening mammogram LIPID PANEL W REFLEX MEASURED LDL Routine 01/10/2017 4:02 PM CDT Screening cholesterol level MARKETING PROGRAM COORDINATOR THIN PREP PAP SCREEN IMAGED Routine 01/10/2017 [...] None Seen /HPF 02/16/2024 9:25 AM CDT [facility] WBC 0-2 0-2, 3-5, None Seen /HPF 02/16/2024 9:25 AM CDT [facility] BACTERIA Few None Seen, Rare, Few Bacteria/H PF 02/16/2024 9:25 AM CDT [facility] EPITHELIAL CELLS Few None Seen, Few Epi/HPF 02/16/2024 9:25 AM CDT [facility] Urine URINE SPECIMEN / Unknown Non-Blood / Unknown 02/16/2024 9:17 AM CDT 02/16/2024 9:17 AM CDT Fiona BOSCH URINE [facility] [address] [place] [address], * (ABNORMAL) UA W/ SEDIMENT EXAM REFLEXED PER CRITERIA (02/16/2024 9:17 AM CDT) COLOR Yellow Yellow Color 02/16/2024 9:26 AM CDT [facility] CLARITY Clear Clear Clarity 02/16/2024 9:26 AM CDT [facility] SPECIFIC GRAVITY,URINE 1.020 1.010, 1.015, 1.020, 1.025 02/16/2024 9:26 AM CDT [facility] PH,URINE 7.0 6.0, 7.0, 8.0, 5.5, 6.5, 7.5, 8.5 02/16/2024 9:26 AM CDT [facility] UROBILINOGEN,QU ALITATIVE Increased(A) Normal EU/dl 02/16/2024 9:26 AM CDT [facility] PROTEIN, URINE Negative Negative mg/dL 02/16/2024 9:26 AM CDT [facility] GLUCOSE, URINE Negative Negative mg/dL 02/16/2024 9:26 AM CDT [facility] KETONES,URINE 15(A) Negative mg/dL 02/16/2024 9:26 AM CDT [facility] BILIRUBIN,URINE Abnormal(A) Negative 02/16/20 9:26 AM CDT [facility] Comment:A variety of metabol ites and/or medications may result in a positive bilirubin result. Clinical correlation is recommended. OCCULT BLOOD,URINE Trace(A) Negative 02/16/2024 9:26 AM CDT [facility] NITRITE Negative Negative 02/16/2024 9:26 AM CDT [facility] LEUKOCYTE ESTERASE Negative Negative 02/16/2024 9:26 AM CDT [facility] Urine URINE SPECIMEN / Unknown Non-Blood / Unknown 02/16/2024 9:17 AM CDT 02/16/2024 9:17 AM CDT Fiona BOSCH URINE [facility] [address] [place] [address], * CBC WITH AUTO DIFFERENTIAL (02/16/2024 9:14 AM CDT) WHITE BLOOD COUNT 6.5 4.5 - 11.0 thou/cu mm 02/16/2024 9:23 AM CDT [facility] RED BLOOD COUNT 4.24 4.00 - 5.20 mil/cu mm 02/16/2024 9:23 AM CDT [facility] HEMOGLOBIN 12.8 12.0 - 16.0 g/dL 02/16/2024 9:23 AM CDT [facility] HEMATOCRIT 39.5 33.0 - 51.0 % 02/16/2024 9:23 AM CDT [facility] MCV 93 80 - 100 fL 02/16/2024 9:23 AM CDT [facility] MCH 30.2 26.0 - 34.0 pg 02/16/2024 9:23 AM CDT [facility] MCHC 32.4 32.0 - 36.0 g/dL 02/16/2024 9:23 AM CDT [facility] RDW 13.6 11.5 - 15.5 % 02/16/2024 9:23 AM CDT [facility] PLATELET COUNT 397 140 - 440 thou/cu mm 02/16/2024 9:23 AM CDT [facility] MPV 9.9 6.5 - 11.0 fL 02/16/2024 9:23 AM CDT [facility] % NEUT 61.8 % 02/16/2024 9:23 AM CDT [facility] % LYMPH 25.0 % 02/16/2024 9:23 AM CDT [facility] % MONO 10.1 % 02/16/2024 9:23 AM CDT [facility] % EOS 2.8 % 02/16/2024 9:23 AM CDT [facility] % BASO 0.3 % 02/16/2024 9:23 AM CDT [facility] ABSOLUTE NEUTROPHILS 4.0 1.7 - 7.0 thou/cu mm 02/16/2024 9:23 AM CDT [facility] ABSOLUTE LYMPHOCYTES 1.6 0.9 - 2.9 thou/cu mm 02/16/2024 9:23 AM CDT [facility] ABSOLUTE MONOCYTES 0.7 <0.9 thou/cu mm 02/16/2024 9:23 AM CDT [facility] ABSOLUTE EOSINOPHILS 0.2 <0.5 thou/cu mm 02/16/2024 9:23 AM CDT [facility] ABSOLUTE BASOPHILS 0.0 <0.3 thou/cu mm 02/16/2024 9:23 AM CDT [facility] Blood BLOOD SPECIMEN / Unknown Venipuncture / Unknown 02/16/2024 9:14 AM CDT 02/16/2024 9:15 AM CDT Fiona BOSCH HEMATOLOGY [facility] [address] [place] [address], * (ABNORMAL) C-REACTIVE PROTEIN (02/16/2024 9:14 AM CDT) C-REACTIVE PROTEIN 10.0(H) <0.5 mg/dL 02/16/2024 1:10 PM T [facility] Blood BLOOD SPECIMEN / Unknown Venipuncture / Unknown 02/16/2024 9:14 AM CDT 02/16/2024 9:15 AM CDT Fiona BOSCH CHEMISTRY Performing Organization Address City/[facility]/ZIP Co de Phone Number [facility] [address] [place] [address] * LIPASE (02/16/2024 9:14 AM CDT) Pathologist [facility] LIPASE 33.0 13.0 - 60.0 IU/L 02/16/2024 1:10 PM [facility] Blood BLOOD SPECIMEN / Unknown Venipuncture / Unknown 02/16/2024 9:14 AM CDT 02/16/2024 9:15 AM CDT Fiona BOSCH CHEMISTRY [facility] [address] [place] [address] * COMP METABOLIC PANEL (02/16/2024 9:14 AM CDT) Pathologist [facility] SODIUM 142 136 - 145 mmol/L 02/16/2024 1:10 PM [facility] POTASSIUM 4.2 3.5 - 5.1 mmol/L 02/16/2024 1:10 PM [facility] CHLORIDE 101 98 - 107 mmol/L 02/16/2024 1:10 PM [facility] CO2,TOTAL 28 22 - 29 mmol/L 02/16/2024 1:10 PM [facility] ANION GAP 13 5 - 18 02/16/2024 1:10 PM [facility] GLUCOSE 90 70 - 99 mg/dL 02/16/2024 1:10 PM [facility] CALCIUM 10.0 8.6 - 10.0 mg/dL 02/16/2024 1:10 PM [facility] BUN 8 6 - 20 mg/dL 02/16/2024 1:10 PM [facility] CREATININE 0.70 0.50 - 0.90 mg/dL 02/16/2024 1:10 PM [facility] BUN/CREAT RATIO 11 10 - 20 4 1:10 PM [facility] eGFR >90 >90 mL/min/1.7 3m2 02/16/2024 1:10 PM [facility] Comment:As of 2021, eG FR is calculated by the CKD-EPI creatinine equation without race adjustment. ??eGFR can be influenced by muscle mass, exercise, and diet. ??The reported eGFR is an estimation only and is only applicable if the renal function is stable. ALBUMIN 4.7 4.0 - 4.9 g/dL 02/16/2024 1:10 PM [facility] PROTEIN,TOTAL 7.7 6.0 - 8.0 g/dL 02/16/2024 1:10 PM [facility] BILIRUBIN,TOTAL 0.8 0.0 - 1.2 mg/dL 02/16/2024 1:10 PM [facility] ALK PHOSPHATASE 71 35 - 104 IU/L 02/16/2024 1:10 PM [facility] ALT (SGPT) 17 10 - 35 IU/L 02/16/2024 1:10 PM [facility] AST (SGOT) 27 10 - 35 IU/L 02/16/2024 1:10 PM [facility] Blood BLOOD SPECIMEN / Unknown Venipuncture / Unknown 02/16/2024 9:14 AM CDT 02/16/2024 9:15 AM CDT Fiona BOSCH CHEMISTRY [facility] [address] [place] [address] * COLONOSCOPY (12/02/2023 7:51 AM CDT) 12/02/2023 [...] adequate candidate for conscious sedation. The PCF-H190L [id number] was passed through the anus and advanced [...] 7:51 AM Procedure Code(s): --- Professional --- 41690, Colonoscopy, flexible; diagnostic, including collection of specimen(s) bybrushing or washing, when performed (separateprocedure) Diagnosis Code(s): --- Professional --- Z12.11, Encounter for screening formalignant neoplasm of colon K57.30, Diverticulosis of large intestine without perforation or abscess withoutbleeding CPT copyright 2022 [employer]. All rights reserved. The codes documented in this report are preliminary and upon plastic cutter reviewmay be revised to meet current compliance requirements. Scope In: 8:40:26 AM Scope Withdrawal Time 0 hours 7 minutes 18 seconds Scope Out: 9:00:38 AM Sky Herrera MD PROCEDURE ORD * XR MAMMO YE BILAT SCREEN (07/29/2023 4:05 PM HEEL SORTER) Anatomical Region Laterality Modality BREASTS, Breast Left, Breast Right Bilateral Mammography Impressions 08/01/2023 2:22 PM HEEL SORTER ??There is no radiographic evidence for malignancy. ??Recommend annual mammograms. MAMMOGRAM ASSESSMENT: ??ACR 1 Negative PATIENTS: You will also receive a letter with your examination results in an easy to read format. ??If you have questions about your results, please contact your referring provider. Narrative 08/01/2023 2:22 PM HEEL SORTER For Patients: As a result of the Century Cures Act, medical imaging exams and procedure reports are released immediately into your electronic medical record. You may view this report before your referring provider. If you have questions, please contact your health care provider. XR MAMMO YE BILAT SCREEN [[id number]] CLINICAL HISTORY: ??This is an asymptomatic 57 y.o. patient. INDICATION FOR EXAM: Mammogram Screening. TECHNIQUE: CC & MLO views were obtained. ??This study was evaluated with the assistance of Computer-Aided Detection. Breast Tomosynthesis was used in interpretation. COMPARISON FILM: Yes 03/02/22 [place] 02/13/21 [facility] FINDINGS: ??The breasts are heterogeneously dense, which may obscure small masses. There are no dominant masses, suspicious micro calcifications or areas of architectural distortion. Areli BOSCH MAMMO * (ABNORMAL) LIPID PANEL W REFLEX MEASURED LDL (01/10/2017 4:02 PM CDT) CHOLESTEROL,TOTAL 187 100 - 199 mg/dL 01/10/2017 8:38 PM CDT [facility] TRIGLYCERIDES 170(H) <150 mg/dL 01/10/2017 8:38 PM CDT [facility] HDL CHOLESTEROL 47 >40 mg/dL 7 8:38 PM CDT [facility] NON-HDL CHOLESTEROL 140 <145 mg/dl 01/10/2017 8:38 PM CDT [facility] CHOL/HDL RATIO 3.98 <4.50 01/10/2017 8:38 PM CDT [facility] LDL CHOLESTEROL 106 <=130 mg/dL 01/10/2017 8:38 PM T [facility] PATIENT STATUS FASTING 01/10/2017 8:38 PM CDT [facility] Blood BLOOD SPECIMEN / Unknown Venipuncture / Unknown 01/10/2017 4:02 PM CDT 01/10/2017 4:02 PM CDT Areli BOSCH CHEMISTRY [facility] [address] [place] [address], [facility] [address] [place] [address], * MARKETING PROGRAM COORDINATOR THIN PREP PAP SCREEN IMAGED (01/10/2017 3:58 PM CDT) Case Report Gynecologic Cytology Report ? Case: [id number] ? Authorizing Provider: ??Areli Villagomez PA Collected: ? 01/10/2017 1558 ? Ordering Location: ? [facility] ?? Received: ?01/10/2017 1558 ? Clinic ? First Screen: ?Antionette Hernández ? Specimen: ?MARKETING PROGRAM COORDINATOR ThinPrep Vial Screening, Cervical ? 01/17/2017 11:48 AM CDT [facility] INTERPRETATION/ RESULT NEGATIVE FOR INTRAEPITHELIAL LESION OR MALIGNANCY (NIL) (none) 01/17/2017 11:48 AM CDT [employer] [facility] IMEN ADEQUACY Satisfactory for evaluation Endocervical component present 01/17/2017 11:48 AM CDT [employer] [facility] HPV REQUEST HPV if ASCUS 01/17/2017 11:48 AM CDT [facility] Date of LMP 12/15/2016 01/17/2017 11:48 AM CDT [facility] Last Pap Date 08/20/2013 01/17/2017 11:48 AM CDT [facility] Last Pap Result NIL 7 11:48 AM CDT [employer] [facility] [facility] Abnormal Pap or [place] Bx in last 5 years No 01/17/2017 11:48 AM CDT [facility] Menstrual Status Regular Periods 01/17/2017 11:48 AM CDT [facility] [place] Bx Done Today No 01/17/2017 11:48 AM CDT [facility] [facility] Additional Information None given 01/17/2017 11:48 AM CDT [facility] [facility] Automated Review Successful 01/17/2017 11:48 AM CDT [facility] [facility] Comment:Specimen processed s uccessfully by automated master control engineer device, ThinPrep Imaging System, [employer] Note The pap test is a screening technique, not a diagnostic procedure. ??It is used primarily to screen for squamous cancers and precursor lesions. ??Published studies have shown that it is subject to both false negative and false positive results. ??The pap test should not be used as the sole means to diagnose or exclude pre-malignant and malignant lesions. Interpreted at [facility] (Central Lab, [facility], [facility], [facility], [facility], [facility], [facility]) 01/17/2017 11:48 AM CDT [facility] Other (Cervical) 01/10/2017 3:58 PM CDT 01/10/2017 3:58 PM CDT Areli BOSCH PATHOLOGY/CYTOL OGY [facility] [address] [place] [address], * ANTI HCV (04/13/2011 12:49 PM CDT) ANTI HCV Non-reacti ve [facility] Blood specimen (specimen) BLOOD SPECIMEN / Unknown 04/13/2011 12:49 PM CDT 04/13/2011 12:39 PM CDT Sabrina BOSCH SEND OUTS [facility] INTERNAL ZIP [address] [place] [address] * ANTI HIV 1/2 (04/13/2011 12:49 PM CDT) ANTI HIV 1/2 Non-reacti ve [facility] Blood specimen (specimen) BLOOD SPECIMEN / Unknown 04/13/2011 12:49 PM CDT 04/13/2011 12:39 PM CDT Sabrina BOSCH SEND OUTS [facility] INTERNAL ZIP [address] [place] [id number] from Last 3 Months or Most Recently Relevant to Health Maintenance Advance Directives * Full Code (Latest Code Status on File) Date Activated Date Inactivated Comments 03/19/2015 6:48 AM 03/19/2015 3:58 PM Care Teams Land Manager Relationship Specialty Start Date End Date Areli Villagomez PA [address] [place] [address] PCP - General Family Practice 08/03/13 Yael Nazario MD [address] [facility] [address] [place] [address] Rheumatology Rheumatology 06/24/14 Giovanna Rodriguez RN, BSN [address], [place] [address] Rn Complex Care Registered Nurse 03/05/[address] [place] [address] Score Caller 09/27/23
--- OUTSIDE RECORDS SUMMARY | 2024-04-16 20:08 | XMS_ITS | Clinical Summary ---
Author Organization [facility] Address [address] [place] [address] Care Team Providers Care Patternmaker Apprentice Metal Name Role Phone Unavailable Primary Care Provider [...] Not on file [address] [place] [address]
--- OUTSIDE RECORDS SUMMARY | 2024-04-16 20:08 | XMS_ITS | Referral Summary ---
Author Organization [facility] Address [address] [place] [address] Care Team Providers Care Dog Behaviorist Name Role Phone Unavailable Primary Care Provider [...] Not on file [address] [place] [address] [id number]
[2024-04-16 20:11] LABS: Basophils Absolute Auto 0.03 K/uL (0.00-0.30); Basophils Percent Auto 0.3 % (0.0-3.0); Eosinophils Absolute Auto 0.17 K/uL (0.00-0.50); Eosinophils Percent Auto 1.6 % (0.0-7.0); Hematocrit 41.9 % (33.0-51.0); Hemoglobin* 13.5 gm/dL (12.0-16.0); Immature Granulocytes Abs Auto 0.02 K/uL (0.00-0.30); Immature Granulocytes Pct Auto 0.2 %; Lymphocytes Percent Auto 15.1 % (20-44); Mean Corpuscular HGB Conc 32 gm/dL (32-36); Mean Corpuscular Hemoglobin 30 pg (26-34); Mean Corpuscular Volume 92 fL (80-100); Monocytes Percent Auto 8.5 % (0.0-11.0); Neutrophils Percent Auto 74.3 % (42.0-72.0); Platelet Count* 327 K/uL (140-440); RDW Coefficient of Variation % 13.1 % (11.5-15.5); Red Blood Count 4.58 m/uL (4.00-5.20); White Blood Count* 10.68 K/uL (4.50-11.00)
[2024-04-16 20:14] LABS: Slide Review Reflex No
--- NOTE | 2024-04-16 20:17 | CRLHL7_ITS ---
For Patients: As a result of the Cures Act, medical imaging exams and procedure reports are released immediately into your electronic medical record. You may view this report before your referring provider. If you have questions, please contact your health care provider. INDICATION: Fever. TECHNIQUE: Chest 2 views. COMPARISON: 08/06/2022. FINDINGS: Cardiovascular and mediastinum: Heart size is normal. Unremarkable mediastinum. Lungs and pleural spaces: Lungs are clear. No sign of infiltrate or mass. No sign of pleural effusion. No pneumothorax. Bones and soft tissues: No significant findings. IMPRESSION: Negative chest. No sign of pneumonia. Dictated by Brian Floyd MD @ 04/16/2024 10:17:21 PM (Electronically Signed)
[2024-04-16 20:23] LABS: Albumin* 4.5 g/dL (3.3-5.0); Chloride* 100 mmol/L (96-114)
--- NOTE | 2024-04-16 20:23 | ED_ITS ---
HPI - General Adult General Chief complaint: Post Op Complication Stated complaint: Abdominal pain, fever Time Seen by Provider: 04/16/24 19:34 Source: patient Mode of arrival: ambulatory Limitations: no limitations History of Present Illness HPI narrative: Patient is a 58-year-old female coming in today complaining of fever and abdominal pain. Patient is postop day 7 status post repair of an incarcerated right spigelian hernia and asymptomatic incidental umbilical hernia. She states that her postop course has been unremarkable. She has not needed pain medication for the last 3 days until today when her pain got worse again. She describes suprapubic discomfort, no nausea or vomiting. She denies any dysuria, increased urgency or frequency. She denies any constipation or diarrhea. She states that she had a fever of 100.7 today. She has not taken any medications. She denies cough or shortness of breath. She denies any skin rashes. States that her incisions are healing well. Related Data Home Medications ?Medication ?Instructions ?Recorded ?Confirmed cholecalciferol (vitamin D3) 25 50 mcg PO DAILY 02/16/22 04/16/24 mcg (1,000 unit) tablet multivitamin 1 tab PO QAM 02/16/22 04/16/24 Allergies Allergy/AdvReac Type Severity Reaction Status Date / Time penicillin V Allergy Severe Hives Verified 11/11/23 13:53 progesterone Allergy Severe swelling, Verified 11/11/23 13:53 burning of skin, itching, rash ciprofloxacin Allergy Intermediate Hives Verified 11/11/23 13:53 metronidazole Allergy Intermediate Rash Verified 11/11/23 13:53 Nitroimidazoles Allergy Unknown Verified 11/11/23 13:53 Iodinated Contrast Media Allergy Verified 11/11/23 13:53 Review of Systems Status of ROS: Reports: 10 or more systems reviewed and unremarkable except as noted in History and below [facility] Medical History Atrial fibrillation ?I48.91 - Unspecified atrial fibrillation (ICD-10) Diverticulitis ?K57.92 - Diverticulitis of intestine, part unspecified, without perforation or abscess without bleeding (ICD-10) Rectocele ?N81.6 - Rectocele (ICD-10) Perimenopause ?N95.1 - Menopausal and female climacteric states (ICD-10) Angioedema ?T78.3XXA - Angioneurotic edema, initial encounter (ICD-10) Lung mass ?R91.8 - Other nonspecific abnormal finding of lung field (ICD-10) Abnormal uterine bleeding ?N93.9 - Abnormal uterine and vaginal bleeding, unspecified (ICD-10) Surgical History Status post inguinal hernia repair ?Z98.890 - Other specified postprocedural states (ICD-10) ?Z87.19 - Personal history of other diseases of the digestive system (ICD-10) History of lung biopsy ?Z98.890 - Other specified postprocedural states (ICD-10) S/P dilation and curettage ?Z98.890 - Other specified postprocedural states (ICD-10) S/P cholecystectomy ?Z90.49 - Acquired absence of other specified parts of digestive tract (ICD- 10) Stone in kidney ?N20.0 - Calculus of kidney (ICD-10) Family History Aunt Diabetes Other Colon cancer Ovarian cancer Social History Narrative: 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 [employer] She has a master's degree She exercises regularly She does not smoke She drinks alcohol 3 to 4 times a week She does not use recreational drugs Smoking Status: Never smoker Do you use any of these nicotine containing products: None Second hand tobacco smoke exposure: No How often do you have a drink containing alcohol: 2-3 times a week How many standard drinks containing alcohol do you have on a typical day: 1 or 2 How often do you have six or more drinks on one occasion: Never AUDIT-C Alcohol total score: 3 Non-prescribed substance use: denies use Little interest or pleasure in doing things: not at all Feeling down, depressed, or hopeless: not at all service: No Exam Narrative: Exam Narrative: Well-nourished well-developed patient in no acute distress. Alert and oriented. Answers questions appropriately. Mood and affect are appropriate. Thoughts are goal oriented and rational. No tangential or magical thinking noted. Odell schmitz speaks in full sentences without needing to catch her breath. HEENT: Normocephalic atraumatic. Pupils are equally round reactive to light. Extraocular muscles are intact. Conjunctivae are moist without any icterus noted. Moist mucous membranes. Cardiovascular: Heart is regular rate and rhythm S1 and S2 are present without any murmurs. Lungs: Clear to auscultation bilaterally no wheezes rhonchi or rales are appreciated. Patient takes deep breaths without any discomfort. Abdomen: Soft and nondistended normal bowel sounds. She does have mild suprapubic tenderness. Her incisions are healing appropriately, no evidence of infection noted. Extremities: Bilateral lower extremities are without edema. Skin: Well perfused without any obvious rashes. Const: Vital Signs, click to edit/add: Vital Signs - 24 hr 04/16/24 18:18 04/16/24 20:36 Temperature 99.8 F H 98.2 F Pulse Rate [Pulse Oximeter] 85 73 Respiratory Rate 18 18 Blood Pressure [Ri ght Upper Arm] 130/87 121/85 Pulse Oximetry 100 98 Oxygen Delivery Me thod Room Air Room Air Course Course ED Course: We discussed doing lab work and an abdominal CT with contrast. Patient states that she does have an allergy to contrast causing welts. We discussed premedication patient states that she does not respond to Benadryl and steroids. Therefore we proceeded with an abdominal CT without contrast. In the meantime we did do some blood work: CBC was unremarkable. Chemistries are normal. Normal LFTs. Normal lipase. CRP 2.1. UA is normal. COVID/influenza negative. Abdominal CT shows diverticulitis, no postoperative complications noted. Vital Signs Vital signs: Initial Vital Signs Temperature 99.8 F H 04/16/24 18:18 Temperature Source Temporal Artery Scan 04/16/24 18:18 Pulse Rate 85 04/16/24 18:18 Respiratory Rate 18 04/16/24 18:18 Blood Pressure 130/87 04/16/24 18:18 Blood Pressure Mean 101 04/16/24 18:18 Blood Pressure Position Sitting 04/16/24 18:18 Pulse Oximetry 100 04/16/24 18:18 Oxygen Delivery Method Room Air 04/16/24 18:18 Vital Signs Temperature 99.8 F H 04/16/24 18:18 Pulse Rate 85 04/16/24 18:18 Respiratory Rate 18 04/16/24 18:18 Blood Pressure 130/87 04/16/24 18:18 Pulse Oximetry 100 10/14/24 18:18 Oxygen Delivery Method Room Air 04/16/24 18:18 Temperature 98.2 F 04/16/24 20:36 Pulse Rate 73 04/16/24 20:36 Respiratory Rate 18 04/16/24 20:36 Blood Pressure 121/85 04/16/24 20:36 Pulse Oximetry 98 04/16/24 20:36 Oxygen Delivery Method Room Air 04/16/24 20:36 Medical Decision Making MDM Narrative Medical decision making narrative: 58-year-old female with diverticulitis. No evidence of postoperative complications noted. The patient has multiple allergies. She states that her body does not respond to antibiotic treatment and so she fasts when she has diverticulitis. Patient states that this is what she wishes to do at this time. We discussed the antibiotics for the treatment of choice for diverticulitis, patient states that she understands but again does not wish to have that prescribed at this time. Lab Data Lab results reviewed: Yes I reviewed the patient's lab results Labs: Lab Results 04/16/24 04/16/24 Range/Units 19:30 20:00 WBC 10.68 (4.50-11.00) K/uL RBC 4.58 (4.00-5.20) m/uL Hgb 13.5 (12.0-16.0) gm/dL Hct 41.9 (33.0-51.0) % MCV 92 (80-100) fL MCH 30 (26-34) pg MCHC 32 (32-36) gm/dL RDW Coeff of Afshan 13.1 (11.5-15.5) % Plt Count 327 (140-440) K/uL Neut % (Auto) 74.3 H (42.0-72.0) % Lymph % (Auto) 15.1 L (20-44) % [place] % (Auto) 8.5 (0.0-11.0) % Eos % (Auto) 1.6 (0.0-7.0) % Baso % (Auto) 0.3 (0.0-3.0) % Neut # (Auto) 7.90 H (1.7-7.0) K/uL Lymph # (Auto) 1.60 (0.90-2.90) K/uL [place] # (Auto) 0.90 (0.00-0.90) K/UL Eos # (Auto) 0.17 (0.00-0.50) K/uL Baso # (Auto) 0.03 (0.00-0.30) K/uL Abs Immat Gran (auto) 0.02 (0.00-0.30) K/uL Imm/Tot Granulo (auto) 0.2 % Sodium 139 (135-149) mmol/L Potassium 3.6 (3.6-5.1) mmol/L Chloride 100 (96-114) mmol/L Carbon Dioxide 27 (20-32) mmol/L Anion Gap 12 (7-15) mEq/L BUN 13 (7-30) mg/dL Creatinine 0.6 (0.5-1.5) mg/dL Estimated Creat Clear 103.10 Estimated GFR 104 ml/min Glucose 98 (60-115) mg/dL Lactate 1.1 (0.5-1.9) mmol/L Calcium 9.6 (8.4-10.6) mg/dL Total Bilirubin 0.5 (0.1-1.5) mg/dL Direct Bilirubin 0.1 (0.0-0.5) mg/dL AST 26 (12-35) U/L ALT 21 (4-35) U/L Alkaline Phosphatase 79 (40-150) U/L C-Reactive Protein 2.1 H (0.5-1.0) mg/dL Total Protein 7.5 (6.0-8.3) g/dL Albumin 4.5 (3.3-5.0) g/dL Lipase 79 (23-300) U/L Urine Color Yellow (Yellow) Urine Appearance Clear (Clear) Urine pH 8.5 (5.0-8.5) Ur Specific [place] 1.015 (1.000-1.030) Urine Protein Negative (Negative) Urine Glucose (UA) Negative (Negative) Urine Ketones Negative (Negative) Urine Blood Negative (Negative) Urine Nitrite Negative (Negative) Urine Bilirubin Negative (Negative) Urine Urobilinogen 0.2 (0.2-1.0) Ur Leukocyte Esterase Negative (Negative) SARS-CoV-2 (PCR) Negative SARS-CoV-2 (Negative) Influenza Type A (PCR) Negative PCR FLU A (Negative) Influenza Type B (PCR) Negative PCR FLU B (Negative) Imaging Data CT scan - abdomen: Attestation: I have reviewed the pertinent imaging results. Radiologist's impression: CT abdomen and pelvis without contrast. COMPARISON: 04/09/2024. FINDINGS: Lower chest: Unremarkable. Liver: Normal in size and attenuation. No suspicious masses. Gallbladder and bile ducts: Cholecystectomy. Pancreas: Unremarkable. No mass or inflammation. Spleen: Normal in size. No masses. Adrenal glands: Normal in size. No nodules. Kidneys: Left renal posterior cyst with partial rim calcification is unchanged. Kidneys otherwise unremarkable. GI tract: Diffuse colonic diverticulosis. There is acute inflammation amongst diverticula in the sigmoid area. Small bowel is normal. Normal appendix. Vasculature: Abdominal aorta is normal in caliber. Lymph nodes: No lymphadenopathy. Peritoneum/Abdominal Wall: There are postoperative changes from an umbilical hernia repair and a right spigelian hernia repair. Small amount of scattered free air and air in the abdominal wall consistent with recent surgery. Minimal dependent free fluid in the pelvis is also expected. Pelvis: Pessary device present. Bones: Unremarkable for age. IMPRESSION: 1. Acute sigmoid diverticulitis without complication. 2. Expected postoperative changes from a recent hernia repair. No specific postoperative complication evident. Discharge Plan Discharge Clinical Impression: Diverticulitis Patient Disposition: Home, Self-Care Condition: Stable Additional Instructions: Return to the ER if your symptoms get worse, pain becomes unmanageable. Prescriptions: No Action cholecalciferol (vitamin D3) 25 mcg (1,000 unit) tablet 50 mcg PO DAILY multivitamin Tablet 1 tab PO QAM Follow Up/Referrals: Areli Villagomez PA-C [Primary Care Provider] - Stand Alone Forms: [employer] Info Instructions
[2024-04-16 20:24] LABS: Potassium* 3.6 mmol/L (3.6-5.1); Sodium* 139 mmol/L (135-149)
[2024-04-16 20:26] LABS: Creatinine* 0.6 mg/dL (0.5-1.5); Estimated Glomerular Filt Rate 104 ml/min
[2024-04-16 20:27] LABS: Alanine Aminotransferase* 21 U/L (4-35); Alkaline Phosphatase* 79 U/L (40-150); Anion Gap 12 mEq/L (7-15); Aspartate Amino Transferase* 26 U/L (12-35); Bilirubin Direct* 0.1 mg/dL (0.0-0.5); Bilirubin Total* 0.5 mg/dL (0.1-1.5); Blood Urea Nitrogen* 13 mg/dL (7-30); Calcium* 9.6 mg/dL (8.4-10.6); Carbon Dioxide* 27 mmol/L (20-32); Glucose* 98 mg/dL (60-115); Lipase* 79 U/L (23-300); Total Protein* 7.5 g/dL (6.0-8.3)
[2024-04-16 20:30] LABS: C Reactive Protein* 2.1 mg/dL (0.5-1.0)
[2024-04-16 20:36] VITALS: BP 121/85; PULSE 73; RESP 18; TEMP 36.8; O2SAT 98
[2024-04-16 20:47] LABS: PCR FLU A Negative PCR FLU A (Negative); PCR FLU B Negative PCR FLU B (Negative); SARS PCR* Negative SARS-CoV-2 (Negative)
== END 2024-04-16 22:06 | disposition home or self-care (01) ==
PROVIDERS: Emergency Provider Family Medicine; PCP Physician Assistant Medical
DX: K57.92 Diverticulitis of intestine, part unspecified, without perforation or abscess without bleeding (principal)
CPT/HCPCS: 36415; 71046; 74176; 80048; 80076; 81003; 83605; 83690; 85025; 86140; 87086; 87631; 99284; 99285